=== PATIENT | female | born 1960 | race Caucasian/White ===

== ENCOUNTER 2020-08-22 15:12 | Inpatient (IN) | payer OTHER ==
[2020-08-22 16:41] LABS: Arterial Blood Carboxyhemoglob 10.8 % (0-1.5); Blood Gas Oxyhemoglobin 84.3 % (94-97); Blood O2 Saturation 95.8 % (92-98.5)
[2020-08-22] MEDS ORDERED: LEVALBUTEROL 1.25 MG/3 ML NEB ONE (17:14)
[2020-08-22] MEDS ORDERED: predniSONE 20 MG TAB ONE (17:14)
[2020-08-22 17:29] LABS: Absolute Lymphocytes (CBC) 0.4 K/uL (0.7-4.9); Basophils % 0.2 % (0-1.3); Hematocrit 41.1 % (36.0-45.0); Lymphocytes % 4.1 % (15.3-44.8); MPV 7.1 fL (7.6-11.3); RBC Red Blood Cell Count 4.24 M/uL (3.86-4.86)
[2020-08-22 17:30] LABS: Protime INR 1.28
[2020-08-22 17:55] LABS: ALT/SGPT 10 U/L (12-78); AST/SGOT 15 U/L (15-37); Alkaline Phosphatase 98 U/L (45-117); BUN Blood Urea Nitrogen 13 mg/dL (7-18); Bicarbonate 37 mmol/L (21-32); Bilirubin Direct 0.3 mg/dL (0-0.2); Bilirubin Total 0.6 mg/dL (0.2-1.0); Glucose Level 88 mg/dL (74-106); Magnesium 2.1 mg/dL (1.8-2.4); NT PRO-BNP 12116 pg/mL (<125); Potassium 3.9 mmol/L (3.5-5.1); Protein, Total 7.4 g/dL (6.4-8.2); Sodium Level 134 mmol/L (136-145)
[2020-08-22 18:01] LABS: Troponin (Emerg Dept Use Only) 0.73 ng/mL (0.0-0.045)
--- NOTE | 2020-08-22 18:16 | ER ---
Nurse's Notes [facility] Name: García Alegria Age: 60 yrs Sex: Female : 1960 Arrival Date: 08/22/2020 Time: 15:17 Bed 18 Private MD: Diagnosis: COPD, CHF, Pneumonia, Hypoxia (< 80% on concentratror at home) Presentation: 08/22 15:37 Chief complaint: Patient states: Trouble breathing, low O2 sat. 73% at home. No fever, ll1 + AVALOS. Coronavirus screen: Client denies travel out of the [place] in the last 14 days. At this time, the client does not indicate any symptoms associated with coronavirus-19. Ebola Screen: Patient denies travel to an Ebola-affected area in the 21 days before illness onset. Initial Sepsis Screen: Does the patient meet any 2 criteria? HR > 90 bpm. Onset of symptoms was August 19, 2020. 15:37 Method Of Arrival: Ambulatory ll1 15:37 Acuity: KATYA 2 ll1 17:23 Initial Sepsis Screen: Does the patient have a suspected source of infection? No. ph Patient's initial sepsis screen is negative. Risk Assessment: Do you want to hurt yourself or someone else? Patient reports no desire to harm self or others. Historical: - Allergies: 15:39 No Known Allergies; ll1 - PMHx: 15:39 Immune Suppression; Tachypnea; Rheumatoid Arthritis; pericarditis; dyspnea; Depression; ll1 Asthma; Tachycardia; - PSHx: 15:39 Pericardial Window; ll1 - Immunization history:: Flu vaccine is up to date. - Social history:: Smoking status: Patient reports the use of cigarette tobacco products, smokes one pack cigarettes per day. Screenin:22 Abuse screen: Denies threats or abuse. Denies injuries from another. Nutritional ph screening: No deficits noted. Tuberculosis screening: No symptoms or risk factors identified. Fall Risk None identified. Assessment: 17:20 General: Appears in no apparent distress. comfortable, well groomed, Behavior is calm, ph cooperative, appropriate for age, Denies fever, feeling ill. Pain: Denies pain. Neuro: Level of Consciousness is awake, alert, obeys commands, Oriented to person, place, time, situation. Cardiovascular: Reports fatigue, shortness of breath, Denies chest pain, Capillary refill < 3 seconds in bilateral fingers Patient's skin is warm and dry. Cardiovascular: Edema is 2+ to left midcalf, left ankle, left foot, right midcalf, right ankle and right foot. Respiratory: Reports shortness of breath at rest Airway is patent Respiratory effort is even, unlabored, Respiratory pattern is regular, symmetrical. GI: No signs and/or symptoms were reported involving the gastrointestinal system. Derm: Skin is intact, is healthy with good turgor, Skin is pink, warm \T\ dry. Musculoskeletal: Circulation, motion, and sensation intact. Range of motion: intact in all extremities. 18:15 Reassessment: Patient appears in no apparent distress at this time. Patient and/or ph family updated on plan of care and expected duration. Pain level reassessed. Patient is alert, oriented x 3, equal unlabored respirations, skin warm/dry/pink. 18:18 Reassessment: Dr Bucio at bedside to speak w/ pt about being admitted. ph 18:50 Reassessment: Patient appears in no apparent distress at this time. Patient and/or ph family updated on plan of care and expected duration. Pain level reassessed. Patient is alert, oriented x 3, equal unlabored respirations, skin warm/dry/pink. Pt denies pain, nausea, or SOB at this time Patient denies pain at this time. 19:15 Reassessment: Patient appears in no apparent distress at this time. Patient and/or jb4 family updated on plan of care and expected duration. Pain level reassessed. Patient is alert, oriented x 3, equal unlabored respirations, skin warm/dry/pink. 20:30 Reassessment: Patient appears in no apparent distress at this time. Patient and/or jb4 family updated on plan of care and expected duration. Pain level reassessed. Patient is alert, oriented x 3, equal unlabored respirations, skin warm/dry/pink. 21:30 Reassessment: Patient appears in no apparent distress at this time. Patient and/or jb4 family updated on plan of care and expected duration. Pain level reassessed. Patient is alert, oriented x 3, equal unlabored respirations, skin warm/dry/pink. Vital Signs: 15:37 BP 125 / 83; Pulse 116; Resp 20; Temp 99.3; Pulse Ox 81% on R/A; Weight 83.01 kg; ll1 Height 5 ft. 4 in. (162.56 cm); Pain 8/10; 17:23 BP 132 / 78; Pulse 101; Resp 20; Pulse Ox 100% on Nebulizer Mask; ph 18:15 BP 138 / 66; Pulse 118; Resp 20; Pulse Ox 89% on 2 lpm NC; ph 18:57 BP 138 / 66; Pulse 108; Resp 22; Pulse Ox 95% on 4 lpm NC; Pain 0/10; ph 20:00 BP 128 / 86; Pulse 93; Resp 16; Pulse Ox 100% on 4 lpm NC; jb4 21:30 BP 120 / 67; Pulse 88; Resp 16; Temp 97.4; Pulse Ox 97% on 4 lpm NC; jb4 15:37 Body Mass Index 31.41 (83.01 kg, 162.56 cm) ll1 18:15 pt states that this is her normal Spo2 on home oxygen at 2L NC ph ED Course: 15:17 Patient arrived in ED. mr 15:35 Zeke Bucio MD is Attending Physician. kdr 15:38 Triage completed. ll1 15:39 Arm band placed on Patient placed in an exam room, on a stretcher. ll1 15:45 Ruba Jara, DENICE is Primary Nurse. ph 16:39 XRAY Chest (1 view) In Process Unspecified. EDMS 17:15 Initial lab(s) drawn, by me, sent to lab. Inserted saline lock: 22 gauge in left ph forearm, using aseptic technique. Blood collected. 17:22 Patient has correct armband on for positive identification. Placed in gown. Bed in low ph position. Call light in reach. Side rails up X 1. Pulse ox on. NIBP on. Door closed. Noise minimized. 18:14 Dino Rizvi MD is Hospitalizing Provider. kdr 18:19 No provider procedures requiring assistance completed. Patient admitted, IV remains in ph place. 18:21 EKG done, by ED staff, reviewed by Zeke Bucio MD. jp3 18:22 telemetry monitor on. jp3 18:22 Warm blanket given. Pillow given. Verbal reassurance given. jp3 Administered Medications: 17:17 Drug: predniSONE 60 mg Route: PO; ph 19:26 Follow up: Response: No adverse reaction ph 17:17 Drug: Xopenex (3) 1.25 mg Route: Inhalation; ph 19:26 Follow up: Response: No adverse reaction ph 18:00 Drug: Heparin (IA Drip) 12 units/kg/hr - (HEParin 29335 units, D5W 500 ml) ph {Co-Signature: iw (Shawna Casillas RN).} Route: IV; Rate: calculated rate; Site: left forearm; 19:27 Follow up: Response: No adverse reaction; IV Status: Infusion continued upon admission ph 18:40 Drug: Aspirin Chewable Tablet 324 mg Route: PO; ph 19:26 Follow up: Response: No adverse reaction ph 18:40 Drug: Rocephin - (cefTRIAXone) 1 grams Route: IVPB; Infused Over: 30 mins; Site: left ph forearm; 19:27 Follow up: Response: No adverse reaction; IV Status: Completed infusion ph 18:47 Drug: Heparin (IA-Bolus with thrombolytic) - HEParin 60 units/kg {Co-Signature: iw ph (Shawna Casillas RN).} Route: IVP; Site: left forearm; 19:27 Follow up: Response: No adverse reaction ph Outcome: 18:15 Decision to Hospitalize by Provider. kdr 21:30 Admitted to ICU accompanied by nurse, via wheelchair. jb4 21:30 Condition: stable 21:30 Discharge instructions given to patient, family, Instructed on the need for admit, Demonstrated understanding of instructions. 21:46 Patient left the ED. ar5 Signatures: Dispatcher [employer] EDMS Zeke Bucio MD MD [facility] Ursula Epps mr Ruba Jara RN RN Raji Arenas RN RN jb4 Braulio Mckenzie Autumn ar5 Moisés Mckinney RN RN ll1 Shawna Casillas RN iw
--- NOTE | 2020-08-22 18:16 | EDPHYS ---
Physician Documentation [facility] Name: García Alegria Age: 60 yrs Sex: Female : 1960 Arrival Date: 08/22/2020 Time: 15:17 Bed 18 Private MD: ED Physician Zeke Bucio HPI: 08/22 19:26 This 60 yrs old Female presents to ER via Ambulatory with complaints of Low kdr O2. 19:26 The patient has been feeling SOB with low oxygen for about a week but worse in the last kdr few days. She has home oxygen but does not think it is working. She is also experiencing worsening bilateral ankle swelling. Onset: The symptoms/episode began/occurred gradually, 1 week(s) ago. Severity of symptoms: At their worst the symptoms were moderate in the emergency department the symptoms are unchanged. The patient has experienced similar episodes in the past, multiple times. The patient has not recently seen a physician. Historical: - Allergies: 15:39 No Known Allergies; ll1 - PMHx: 15:39 Immune Suppression; Tachypnea; Rheumatoid Arthritis; pericarditis; dyspnea; Depression; ll1 Asthma; Tachycardia; - PSHx: 15:39 Pericardial Window; ll1 - Immunization history:: Flu vaccine is up to date. - Social history:: Smoking status: Patient reports the use of cigarette tobacco products, smokes one pack cigarettes per day. ROS: 19:26 Constitutional: Negative for fever, chills, and weight loss, Eyes: Negative for injury, kdr pain, redness, and discharge, ENT: Negative for injury, pain, and discharge, Neck: Negative for injury, pain, and swelling, Cardiovascular: Negative for chest pain, palpitations, and edema, Abdomen/GI: Negative for abdominal pain, nausea, vomiting, diarrhea, and constipation, Back: Negative for injury and pain, : Negative for injury, bleeding, discharge, and swelling, Skin: Negative for injury, rash, and discoloration, Neuro: Negative for weakness, numbness, tingling, and seizure activity - she does c/o frontal sinus AVALOS Psych: Negative for depression, anxiety, suicide ideation, homicidal ideation, and hallucinations, Allergy/Immunology: Negative for hives, rash, and allergies, Endocrine: Negative for neck swelling, polydipsia, polyuria, polyphagia, and marked weight changes, Hematologic/Lymphatic: Negative for swollen nodes, abnormal bleeding, and unusual bruising. 19:26 Respiratory: Positive for dyspnea on exertion, shortness of breath, Negative for cough. Exam: 19:26 Constitutional: This is a well developed, well nourished patient who is awake, alert, kdr and in no acute distress. Head/Face: Normocephalic, atraumatic. Eyes: Pupils equal round and reactive to light, extra-ocular motions intact. Lids and lashes normal. Conjunctiva and sclera are non-icteric and not injected. Cornea within normal limits. Periorbital areas with no swelling, redness, or edema. Neck: Trachea midline, no thyromegaly or masses palpated, and no cervical lymphadenopathy. Supple, full range of motion without nuchal rigidity, or vertebral point tenderness. No Meningismus. Chest/axilla: Normal chest wall appearance and motion. Nontender with no deformity. No lesions are appreciated. Cardiovascular: Regular rate and rhythm with a normal S1 and S2. No gallops, murmurs, or rubs. Normal PMI, no JVD. No pulse deficits. Abdomen/GI: Soft, non-tender, with normal bowel sounds. No distension or tympany. No guarding or rebound. No evidence of tenderness throughout. Back: No spinal tenderness. No costovertebral tenderness. Full range of motion. Skin: Warm, dry with normal turgor. Normal color with no rashes, no lesions, and no evidence of cellulitis. Neuro: Awake and alert, GCS 15, oriented to person, place, time, and situation. Cranial nerves II-XII grossly intact. Motor strength 5/5 in all extremities. Sensory grossly intact. Cerebellar exam normal. Normal gait. Psych: Awake, alert, with orientation to person, place and time. Behavior, mood, and affect are within normal limits. 19:26 Respiratory: the patient does not display signs of respiratory distress, Respirations: normal, Breath sounds: rales, that are mild, are scattered, Respiratory rate: 22 19:26 Musculoskeletal/extremity: Extremities: grossly normal except: noted in the right leg and left leg: erythema, swelling, tenderness, 2+ pitting edema to both lower extremities, Circulation is intact in all extremities. Sensation intact. 08/23 10:24 ECG was reviewed by the Attending Physician. kdr Vital Signs: 08/22 15:37 BP 125 / 83; Pulse 116; Resp 20; Temp 99.3; Pulse Ox 81% on R/A; Weight 83.01 kg; ll1 Height 5 ft. 4 in. (162.56 cm); Pain 8/10; 17:23 BP 132 / 78; Pulse 101; Resp 20; Pulse Ox 100% on Nebulizer Mask; ph 18:15 BP 138 / 66; Pulse 118; Resp 20; Pulse Ox 89% on 2 lpm NC; ph 18:57 BP 138 / 66; Pulse 108; Resp 22; Pulse Ox 95% on 4 lpm NC; Pain 0/10; ph 20:00 BP 128 / 86; Pulse 93; Resp 16; Pulse Ox 100% on 4 lpm NC; jb4 21:30 BP 120 / 67; Pulse 88; Resp 16; Temp 97.4; Pulse Ox 97% on 4 lpm NC; jb4 15:37 Body Mass Index 31.41 (83.01 kg, 162.56 cm) ll1 18:15 pt states that this is her normal Spo2 on home oxygen at 2L NC ph MDM: 18:15 Patient medically screened. kdr 19:26 Data reviewed: vital signs, nurses notes, lab test result(s), radiologic studies. kdr Counseling: I had a detailed discussion with the patient and/or guardian regarding: the historical points, exam findings, and any diagnostic results supporting the discharge/admit diagnosis, lab results, radiology results, the need for further work-up and treatment in the hospital. Physician consultation: Zak Smith MD and will see patient in inpatient room, Ok - to keep patient here - will take to [facility] tomorrow after echo. tomorrow. 08/22 16:12 Order name: Basic Metabolic Panel; Complete Time: 18:06 kdr 08/22 16:12 Order name: CBC with Diff; Complete Time: 18:06 kdr 08/22 16:12 Order name: LFT's; Complete Time: 18:06 kdr 08/22 16:12 Order name: Magnesium; Complete Time: 18:06 kdr 08/22 16:12 Order name: NT PRO-BNP; Complete Time: 18:06 kdr 08/22 16:12 Order name: PT-INR; Complete Time: 18:06 kdr 08/22 16:12 Order name: Troponin (emerg Dept Use Only); Complete Time: 18:06 kdr 08/22 16:12 Order name: XRAY Chest (1 view) kdr 08/22 16:12 Order name: ABG; Complete Time: 17:34 kdr 08/22 18:31 Order name: Ptt, Activated; Complete Time: 19:20 ss 08/22 18:54 Order name: SARS-COV-2 RT PCR EDMS 08/22 16:12 Order name: EKG; Complete Time: 16:12 kdr 08/22 16:12 Order name: Cardiac monitoring; Complete Time: 16:32 kdr 08/22 16:12 Order name: EKG - Nurse/Tech; Complete Time: 18:26 kdr 08/22 16:12 Order name: IV Saline Lock; Complete Time: 17:17 kdr 08/22 16:12 Order name: Labs collected and sent; Complete Time: 17:17 kdr 08/22 16:12 Order name: O2 Per Protocol; Complete Time: 17:18 kdr 08/22 16:12 Order name: O2 Sat Monitoring; Complete Time: 17:18 kdr EC/02 10:24 Rate is 121 beats/min. Rhythm is regular, Sinus Rhythm with No ectopy, Right bundle kdr branch block. Left axis deviation noted. MS interval is normal at [address] Segment is elevated in leads V4, V5, V6, no recipricol changeas in I \T\ L. Administered Medications: 08/22 17:17 Drug: predniSONE 60 mg Route: PO; ph 19:26 Follow up: Response: No adverse reaction ph 17:17 Drug: Xopenex (3) 1.25 mg Route: Inhalation; ph 19:26 Follow up: Response: No adverse reaction ph 18:00 Drug: Heparin (PR Drip) 12 units/kg/hr - (HEParin 66805 units, D5W 500 ml) ph {Co-Signature: iw (Shawna Casillas RN).} Route: IV; Rate: calculated rate; Site: left forearm; 19:27 Follow up: Response: No adverse reaction; IV Status: Infusion continued upon admission ph 18:40 Drug: Aspirin Chewable Tablet 324 mg Route: PO; ph 19:26 Follow up: Response: No adverse reaction ph 18:40 Drug: Rocephin - (cefTRIAXone) 1 grams Route: IVPB; Infused Over: 30 mins; Site: left ph forearm; 19:27 Follow up: Response: No adverse reaction; IV Status: Completed infusion ph 18:47 Drug: Heparin (PR-Bolus with thrombolytic) - HEParin 60 units/kg {Co-Signature: ph (Shawna Casillas RN).} Route: IVP; Site: left forearm; 19:27 Follow up: Response: No adverse reaction ph Disposition: 08/22/20 18:15 Hospitalization ordered by Dino Rizvi for Inpatient Admission. Preliminary diagnosis is COPD, CHF, Pneumonia, Hypoxia (< 80% on concentratror at home). - Bed requested for Intensive Care Unit. - Status is Inpatient Admission. ar5 - Condition is Fair. - Problem is an acute exacerbation. - Symptoms have improved. Signatures: Dispatcher [employer] EDKY Zeke Bucio MD MD [facility] Shawna Casillas RN RN Royer Bocanegra PA PA [id number] García Eli, [employer] Ruba Jara RN RN Israel Stock RN RN ja1 Uzma Pascual ar5 Moisés Mckinney RN RN [facility] Shawna Casillas RN Corrections: (The following items were deleted from the chart) 18:19 18:15 Hospitalization Ordered by Dino Rizvi MD for Inpatient Admission. Preliminary ja1 diagnosis is COPD, CHF, Pneumonia, Hypoxia (< 80% on concentratror at home). Bed requested for Telemetry/MedSurg (Inpatient). Status is Inpatient Admission. Condition is Fair. Problem is an acute exacerbation. Symptoms have improved. kdr 18:54 16:12 CORONAVIRUS+MR.LAB.BRZ ordered. [facility] EDKY 18:56 18:19 08/22/2020 18:15 Hospitalization Ordered by Dino Rizvi MD for Inpatient iw Admission. Preliminary diagnosis is COPD, CHF, Pneumonia, Hypoxia (< 80% on concentratror at home). Bed requested for Telemetry/MedSurg (Inpatient). Status is Inpatient Admission. Condition is Fair. Problem is an acute exacerbation. Symptoms have improved. ja1 21:46 18:56 08/22/2020 18:15 Hospitalization Ordered by Dino Rizvi MD for Inpatient ar5 Admission. Preliminary diagnosis is COPD, CHF, Pneumonia, Hypoxia (< 80% on concentratror at home). Bed requested for Intensive Care Unit. Status is Inpatient Admission. Condition is Fair. Problem is an acute exacerbation. Symptoms have improved. iw
[2020-08-22] MEDS ORDERED: ASPIRIN 81 MG CHEWABLE TABLET ONE (18:46)
[2020-08-22] MEDS ORDERED: CEFTRIAXONE/SWI 1gm 1 GM/10 ML SYR ONE (18:47)
[2020-08-22] MEDS ORDERED: HEPARIN 5000 UNIT/ML 1 ML VIAL ONE (18:47)
[2020-08-22] MEDS ORDERED: HEPARIN/D5W 25,000 UNIT/500 ML BAG IV ONE (18:47)
--- NOTE | 2020-08-22 21:43 | P.HP ---
Certification for Inpatient Patient admitted to: Inpatient With expected LOS: >2 Midnights Patient will require the following post-hospital care: None Practitioner: I am a practitioner with admitting privileges, knowledge of patient current condition, hospital course, and medical plan of care. Services: Services provided to patient in accordance with Admission requirements found in Title 42 Section 412.3 of the Code of Federal Regulations <García Eli - Last Filed: 08/22/20 21:38> Patient History Date of Service: 08/22/20 Primary Care Provider: Dr. Ventura Reason for admission: STEMI History of Present Illness: 60-year-old female with history of rheumatoid arthritis and COPD presents emergency department for shortness of breath and lower extremity edema. Patient reports that over the course of the last week she has noticed increasing shortness of breath and swelling to lower extremities. Patient reports that in the past she has had intermittent swelling of the lower extremities related to her rheumatoid arthritis and she has never been diagnosed with CHF. Patient reports that she intermittently takes prednisone 5 mg only p.r.n. patient denies any chest pain or associated symptoms. Patient was evaluated in the emergency department and found to have elevated troponin at 0.7 3, other labs are unremarkable at this time. EKG was significant for suggestion of acute myocardial infarction in the anterior lateral leads. Cardiology was called who recommend patient placed on a heparin drip and admitted to the intensive care unit, plan for heart catheterization in the morning. On auscultation patient is still with moderate expiratory wheezing, will continue to treat for COPD exacerbation as well as acute myocardial infarction. When I saw the patient in the emergency department she was awake, alert, oriented x3. Patient denies any chest pain only reports shortness of breath and wheezing. Patient admitted to intensive care for further evaluation and management. - Past Medical/Surgical History Diabetic: No -: COPD -: Rheumatoid Arthritis -: Depression -: Allergies -: Pericarditis -: Gallbladder -: Pericardial window Psychosocial/ Personal History: Patient currently lives at home with her family and is retired. - Family History Father -: Cancer, Other (see notes) Notes: Blood clot, Mother -: Other (see notes) Notes: Cataracts - Social History Smoking Status: Current every day smoker Alcohol use: No CD- Drugs: No Caffeine use: Yes Place of Residence: Home <García Eli - Last Filed: 08/22/20 21:38> Date of Service: 08/24/20 <Dino Rizvi - Last Filed: 08/24/20 17:46> Allergies No Known Allergies Allergy (Verified 11/11/17 22:26) Home Medications: Albuterol Sulfate [Proair Hfa] 8.5 gm IH Q4H PRN 11/11/17 Citalopram [Celexa*] 10 mg PO DAILY 11/11/17 Eszopiclone [Lunesta*] 3 mg PO BEDTIME 11/11/17 Fluticasone [Flonase 50MCG Nasal [place]*] 2 sprays NS DAILY 11/11/17 Leflunomide 20 mg PO DAILY 11/11/17 Levocetirizine Dihydrochloride [Xyzal] 5 mg PO DAILY 11/11/17 Tofacitinib Citrate [Xeljanz Xr] 1 tab PO DAILY 11/11/17 predniSONE [Prednisone*] 5 mg PO DAILY PRN 11/11/17 Acetaminophen [Tylenol] 325 mg PO DAILY PRN 08/23/20 Ergocalciferol (Vitamin D2) [Vitamin D 50,000 Unit Cap] 1 cap PO SEECOM 08/23/20 Glycopyrrolate/Formoterol Fum [Bevespi Aerosphere Inhaler] 2 puff IH BID 08/23/20 Magnesium Oxide [Magnesium] 1 tab PO DAILY 08/23/20 Atorvastatin Calcium [Lipitor] 80 mg PO BEDTIME #30 tab 08/24/20 Clopidogrel Bisulfate [Plavix] 75 mg PO DAILY #30 tablet 08/24/20 Furosemide [Lasix] 20 mg PO DAILY 30 Days #30 tablet 08/24/20 Metoprolol Succinate [Toprol Xl] 50 mg PO DAILY #30 tab 08/24/20 Review of Systems Respiratory: Cough, Shortness of Breath, SOB with Excertion, Wheezing Cardiovascular: Edema (Bilateral lower extremities) <García Eli - Last Filed: 08/22/20 21:38> Physical Examination - Physical Exam General: Alert, In no apparent distress, Oriented x3 HEENT: Atraumatic, Normocephalic, Mucous membr. moist/pink Neck: Supple Respiratory: Crackles/rales, Expiratory wheezes Cardiovascular: Regular rate/rhythm, Edema (Bilateral lower extremities, 2+ pitting to the level of the mcpherson) Capillary refill: <2 Seconds Gastrointestinal: Normal bowel sounds, Soft and benign Musculoskeletal: No swelling, No contractures, No erythema Integumentary: No significant lesion, No tenderness/swelling, No erythema Neurological: Normal speech, Normal tone, Sensation intact, Normal affect - Studies Laboratory Data (last 24 hrs) 08/22/20 17:15: APTT 29.5 08/22/20 17:15: PT 15.0 H, INR 1.28 08/22/20 17:15: WBC 9.2, Hgb 13.2, Hct 41.1, Plt Count 315 08/22/20 17:15: Sodium 134 L, Potassium 3.9, BUN 13, Creatinine 0.51 L, Glucose 88, Magnesium 2.1, Total Bilirubin 0.6, AST 15, ALT 10 L, Alkaline Phosphatase 98 <García Eli - Last Filed: 08/22/20 21:38> Assessment and Plan - Plan Assessment ST-elevation myocardial infarction-anteriolateral COPD exacerbation Lower extremity edema-suspect acute CHF Rheumatoid arthritis Plan ST-elevation myocardial infarction-anteriolateral: Cardiology was contacted while patient was in the emergency department, patient is on heparin drip and with daily aspirin. NPO after midnight in preparation for heart catheterization in the morning. Patient to remain on telemetry throughout this hospitalization, admitted to the ICU. Appreciate further input from cardiology. Patient has had pericardial effusion in the past with pericardial window approximately 5 years ago. Echocardiogram ordered. Cardiology aware. COPD exacerbation: Patient with moderate COPD exacerbation still with expiratory wheezing after steroids and breathing treatments in the emergency department, continue with prednisone, antibiotics. Lower extremity edema-suspect acute CHF: Continue with IV Lasix at this time. Will obtain echocardiogram. Appreciate further input from cardiology. Rheumatoid arthritis: Obtain and continue patient's home medications. Plan to discharge in: Greater than 2 days - Advance Directives Does patient have a Living Will: No Does patient have a Durable POA for Healthcare: No - Code Status/Comfort Care Code Status Assessed: Yes (Patient is full code) Critical Care: No Time Spent Managing Pts Care (In Minutes): 55 <García Eli - Last Filed: 08/22/20 21:38> Physician Review Additional Text: Plan of care discussed with García Eli, and I agree with the management plan as noted above. <Dino Rizvi - Last Filed: 08/24/20 17:46>
[2020-08-22] MEDS ORDERED: HEPARIN 5000 UNIT/ML 1 ML VIAL IV ONE (21:46)
[2020-08-22] MEDS: predniSONE 20 MG TAB PO SCH (21:46)
[2020-08-22] MEDS ORDERED: MORPHINE 2 MG/ML SYR IV PRN (21:46)
[2020-08-22] MEDS ORDERED: NITROGLYCERIN 0.4 MG/TAB SL PRN (21:46)
[2020-08-22] MEDS ORDERED: ONDANSETRON 4 MG/2 ML VIAL IV PRN (21:46)
[2020-08-22] MEDS ORDERED: ATORVASTATIN 40 MG TAB PO SCH (21:46)
[2020-08-22] MEDS ORDERED: ACETAMINOPHEN 500 MG TAB PO PRN (21:46)
[2020-08-22] MEDS ORDERED: HEPARIN/D5W 25,000 UNIT/500 ML BAG IV SCH (21:46)
[2020-08-22] MEDS: IPRATROPIUM BROM 0.5MG/2.5ML NEB SCH (22:30)
[2020-08-22] MEDS: ALBUTEROL 2.5 MG/3 ML NEB SOL NEB SCH (22:30)
[2020-08-22] MEDS ORDERED: IPRATROPIUM BROM 0.5MG/2.5ML ONE (22:43)
[2020-08-22] MEDS ORDERED: ALBUTEROL 2.5 MG/3 ML NEB SOL ONE (22:44)
[2020-08-22 23:30] VITALS: BMI 31.4
[2020-08-22 23:36] LABS: CKMB Creatine Kinase MB 2.7 ng/mL (0.3-3.6); Troponin I 0.48 ng/mL (0.0-0.045)
[2020-08-22] MEDS: FUROSEMIDE 40 MG/4 ML VIAL IV SCH (23:57)
[2020-08-23] MEDS ORDERED: FUROSEMIDE 40 MG/4 ML VIAL ONE (00:09)
[2020-08-23] MEDS ORDERED: ATORVASTATIN 20 MG TAB ONE (00:10)
--- NOTE | 2020-08-23 00:25 | RAD REPORT ---
EXAM DESCRIPTION: RAD - Chest Single View - 08/22/2020 10:53 pm CLINICAL HISTORY: Congestion;COPD Chest pain. COMPARISON: Chest Pa And Lat (2 Views) dated 07/23/2020; Chest Pa And Lat (2 Views) dated 08/21/2019; C hest Pa And Lat (2 Views) dated 11/12/2017; Chest Single View dated 11/11/2017 FINDINGS: Portable technique limits examination quality. Mild bilateral interstitial lung opacities are seen suspicious for mild pulmonary edema. The heart is quite prominent in size. No displaced fractures. IMPRESSION: Mild to moderate CHF suspected.
[2020-08-23] MEDS: FUROSEMIDE 40 MG/4 ML VIAL IV SCH ×3 (01:00→20:47)
[2020-08-23] MEDS: AZITHROMYCIN IV 500 MG in NA CHLORIDE 0.9% 250 ML IVPB SCH ×2 (01:26→21:13)
[2020-08-23] MEDS ORDERED: AZITHROMYCIN 500 MG INJ IVPB ONE ×2 (01:29→20:58)
[2020-08-23] MEDS ORDERED: NA CHLORIDE 0.9% 250 ML ONE ×2 (01:30→21:14)
[2020-08-23] MEDS: IPRATROPIUM BROM 0.5MG/2.5ML NEB SCH ×4 (02:00→19:50)
[2020-08-23] MEDS: ALBUTEROL 2.5 MG/3 ML NEB SOL NEB SCH ×4 (02:00→19:50)
[2020-08-23 02:32] LABS: Absolute Lymphocytes (CBC) 0.2 K/uL (0.7-4.9); Basophils % 0.1 % (0-1.3); Hematocrit 38.4 % (36.0-45.0); Lymphocytes % 1.8 % (15.3-44.8); MPV 7.5 fL (7.6-11.3); RBC Red Blood Cell Count 3.99 M/uL (3.86-4.86)
[2020-08-23 02:49] LABS: CKMB Creatine Kinase MB 2.9 ng/mL (0.3-3.6); Troponin I 0.45 ng/mL (0.0-0.045)
[2020-08-23 02:56] LABS: Blood Morphology Comment NOT SEEN (NOT SEEN); Platelet Estimate ADEQ
[2020-08-23 02:57] LABS: BUN Blood Urea Nitrogen 11 mg/dL (7-18); Bicarbonate 35 mmol/L (21-32); Glucose Level 131 mg/dL (74-106); HDL Cholesterol 41 mg/dL (40-60); LDL Cholesterol, Calculated 42 (<130); Potassium 4.3 mmol/L (3.5-5.1); Sodium Level 136 mmol/L (136-145); Thyroid Stimulating Hormone 0.357 uIU/mL (0.360-3.740)
[2020-08-23] MEDS: METOPROLOL TAR 25 MG TAB PO SCH ×2 (06:00→17:53)
[2020-08-23] MEDS: ASPIRIN 81 MG CHEWABLE TABLET PO SCH (07:14)
[2020-08-23] MEDS: CLOPIDOGREL 75 MG TABLET PO SCH (07:14)
[2020-08-23] MEDS ORDERED: LIDOCAINE 1% 20 ML MDV ONE (07:15)
[2020-08-23] MEDS ORDERED: HEPA 1000U/500MLS 1,000 UNIT/500 ML BAG IV ONE (07:15)
[2020-08-23] MEDS ORDERED: MIDAZOLAM HCL 2 MG/2 ML INJ ONE ×2 (07:16→08:15)
[2020-08-23] MEDS ORDERED: FENTANYL CITR 100 MCG/2 ML ONE (07:17)
[2020-08-23] MEDS ORDERED: NITROGLYCERIN 100 MCG/ML SYR (for cath lab use only) IV ONE (07:18)
[2020-08-23] MEDS ORDERED: NA CHLORIDE 0.9% 50 ML ONE (07:18)
[2020-08-23] MEDS ORDERED: CLOPIDOGREL 75 MG TABLET ONE (07:26)
[2020-08-23] MEDS ORDERED: ASPIRIN 81 MG CHEWABLE TABLET ONE (07:26)
[2020-08-23] MEDS ORDERED: NA CHLORIDE 0.9% 1,000 ML ONE (07:35)
[2020-08-23] MEDS ORDERED: INFLUENZA VACCINE (for 3y+) 0.5 ML DOSE IMVAC ONE (08:00)
[2020-08-23] MEDS ORDERED: PNEUMOCOCCAL VACCINE 0.5 ML IMVAC ONE (08:00)
[2020-08-23] MEDS ORDERED: IPRATROPIUM BROM 0.5MG/2.5ML ONE (08:47)
[2020-08-23] MEDS ORDERED: ALBUTEROL 2.5 MG/3 ML NEB SOL ONE (08:47)
[2020-08-23] MEDS ORDERED: PRASUGREL (EFFIENT) 10 MG TAB ONE (08:52)
--- NOTE | 2020-08-23 08:55 | P.PN ---
Subjective Date of Service: 08/23/20 Primary Care Provider: Dr. Ventura Chief Complaint: STEMI Subjective: Improving (feels as though she is breathing clearer, but still with SOB leg swelling improved. anxious for catheterization today) Review of Systems 10-point ROS is otherwise unremarkable Physical Examination - Vital Signs Temperature: 98 F Blood Pressure: 90/52 Pulse: 60 Respirations: 20 Pulse Ox (%): 96 - Physical Exam General: Alert, In no apparent distress Neck: Supple Respiratory: Expiratory wheezes (bilateral, diffuse) Cardiovascular: Regular rate/rhythm, Edema (1-2+ above b/l ankles) Gastrointestinal: Soft and benign, Non-distended, No tenderness Integumentary: No rashes Neurological: Normal speech, Normal affect - Studies Laboratory Data (last 24 hrs) 08/22/20 17:15: APTT 29.5 08/22/20 17:15: PT 15.0 H, INR 1.28 08/22/20 17:15: WBC 9.2, Hgb 13.2, Hct 41.1, Plt Count 315 08/22/20 17:15: Sodium 134 L, Potassium 3.9, BUN 13, Creatinine 0.51 L, Glucose 88, Magnesium 2.1, Total Bilirubin 0.6, AST 15, ALT 10 L, Alkaline Phosphatase 98 Assessment & Plan Physician Review Additional Text: ST-elevation myocardial infarction-anteriolateral Acute COPD exacerbation Lower extremity edema-suspect acute CHF Rheumatoid arthritis Plan ST-elevation myocardial infarction-anteriolateral: -Case discussed with Cardiology in ED, started on heparin drip and aspirin -for cardiac cath this morning, NPO this morning -dispo pending cath results -h/o pericardial effusion in the past with pericardial window approximately 5 years ago. Echocardiogram ordered. Cardiology aware COPD exacerbation: -Patient with moderate COPD exacerbation still with expiratory wheezing after steroids and breathing treatments in the emergency department -some slight improvement per patient this morning -continue with prednisone, antibiotics. Lower extremity edema-suspect acute CHF: -BNP over 12,000 on admission, chest x-ray consistent with mild pulmonary edema -Last echocardiogram (11/12/2017): Normal LV EF (69%), mild tricuspid regurgitation. No wall motion abnormalities -pt with some hypotension, will decrease frequency of IV Lasix (started on 40mg IV q8hr) -echocardiogram ordered. Appreciate further input from cardiology. Rheumatoid arthritis: -Obtain and continue patient's home medications. Dispo: pending cardiac cath, but with possible CHF Exacerbation and COPD exacerbation will likely need another 24-48hrs prior to discharge Time Spent Managing Pts Care (In Minutes): 35
[2020-08-23] MEDS ORDERED: CEFTRIAXONE 1 GM/NS 50 ML 1 GM/50 ML BAG IV SCH (09:00)
[2020-08-23] MEDS ORDERED: NA CHLORIDE 0.9% 1,000 ML IV SCH (09:30)
[2020-08-23] MEDS ORDERED: MORPHINE 4 MG/ML SYR IV PRN (09:45)
[2020-08-23] MEDS ORDERED: HYDROCODONE/APAP 5/325 MG TAB PO PRN ×2 (09:45→10:45)
[2020-08-23] MEDS ORDERED: ACETAMINOPHEN 325 MG TABLET PO PRN (10:52)
--- NOTE | 2020-08-23 11:40 | EKG ---
Test Date: 2020-08-22 Test Time: 18:20:34 Mental Health Technician: MAJOR MEASUREMENT RESULTS: Intervals: Rate: 121 OR: 138 QRSD: 108 QT: 332 QTc: 471 [place]: P: 83 OR: 138 QRS: -73 T: 79 INTERPRETIVE STATEMENTS: Sinus tachycardia Left axis deviation RSR' or QR pattern in V1 suggests right ventricular conduction delay Inferior infarct, possibly acute Anterolateral infarct, possibly acute ACUTE PA Abnormal ECG Compared to ECG 11/11/2017 15:26:53 Left-axis deviation now present RSR' in V1 or V2 now present Incomplete right bundle-branch block no longer present Left anterior fascicular block no longer present Myocardial infarct finding still present Electronically Signed On 08-23-20 11:37:30 CDT by Zak Smith
--- NOTE | 2020-08-23 11:49 | ECHO ---
HEIGHT: 5 ft 4 in WEIGHT: 183 lb 0 oz DATE OF STUDY: 08/23/[address]: García Eli NP 2-DIMENSIONAL: YES M.MODE: YES DOPPLER: YES COLOR FLOW: YES TDS: NO PORTABLE: NO DEFINITY: NO BUBBLE STUDY: NO DIAGNOSIS: VOLUME OVERLOAD, STEMI CARDIAC HISTORY: CATHERIZATION: YES SURGERY: NO PROSTHETIC VALVE: NO PACEMAKER: NO MEASUREMENTS (cm) DIASTOLIC (NORMALS) SYSTOLIC (NORMALS) IVSd 1.2 (0.6-1.2) LA Diam 3.2 (1.9-4.0) LVEF 65% LVIDd 4.5 (3.5-5.7) LVIDs 2.9 (2.0-3.5) %FS 35% LVPWd 1.2 (0.6-1.2) Ao Diam 3.0 (2.0-3.7) 2 DIMENSIONAL ASSESSMENT: RIGHT ATRIUM: NORMAL LEFT ATRIUM: NORMAL RIGHT VENTRICLE: NORMAL LEFT VENTRICLE: NORMAL TRICUSPID VALVE: NORMAL MITRAL VALVE: NORMAL PULMONIC VALVE: NORMAL AORTIC VALVE: SCLEROSIS PERICARDIAL EFFUSION: NONE AORTIC ROOT: NORMAL LEFT VENTRICULAR WALL MOTION: ANTEROAPICAL HYPOKINESIS. DOPPLER/COLOR FLOW: NORMAL COMMENTS: NORMAL LEFT VENTRICULAR EJECTION FRACTION. ANTEROAPICAL HYPOKINESIS, CONSISTENT WITH CORONARY ARTERY DISEASE. NO EFFUSION. AORTIC SCLEROSIS. TECHNOLOGIST: Jose E BROWER
[2020-08-23] MEDS: predniSONE 20 MG TAB PO SCH ×2 (13:20→20:47)
[2020-08-23] MEDS ORDERED: CEFTRIAXONE/SWI 1gm 1 GM/10 ML SYR IV SCH (18:00)
[2020-08-23] MEDS ORDERED: ATORVASTATIN 80 MG TAB PO SCH ×2 (21:00)
[2020-08-23] MEDS ORDERED: WATER FOR INJ,STERILE 0 ML ONE (21:16)
[2020-08-23] MEDS ORDERED: MELATONIN 5 MG TABLET PO PRN (23:41)
[2020-08-24] MEDS: ALBUTEROL 2.5 MG/3 ML NEB SOL NEB SCH ×3 (01:15→13:13)
[2020-08-24] MEDS: IPRATROPIUM BROM 0.5MG/2.5ML NEB SCH ×3 (01:15→13:13)
[2020-08-24] MEDS: METOPROLOL TAR 25 MG TAB PO SCH (05:40)
[2020-08-24 06:16] LABS: Absolute Lymphocytes (CBC) 0.3 K/uL (0.7-4.9); Basophils % 0.2 % (0-1.3); Hematocrit 36.4 % (36.0-45.0); Lymphocytes % 3.2 % (15.3-44.8); MPV 7.5 fL (7.6-11.3); RBC Red Blood Cell Count 3.74 M/uL (3.86-4.86)
[2020-08-24 06:26] LABS: BUN Blood Urea Nitrogen 9 mg/dL (7-18); Bicarbonate 39 mmol/L (21-32); Glucose Level 112 mg/dL (74-106); Potassium 3.9 mmol/L (3.5-5.1); Sodium Level 139 mmol/L (136-145)
[2020-08-24] MEDS: FUROSEMIDE 40 MG/4 ML VIAL IV SCH (08:10)
[2020-08-24] MEDS: CLOPIDOGREL 75 MG TABLET PO SCH (08:10)
[2020-08-24] MEDS: predniSONE 20 MG TAB PO SCH (08:10)
[2020-08-24] MEDS: ASPIRIN 81 MG CHEWABLE TABLET PO SCH (08:10)
[2020-08-24] MEDS ORDERED: POTASSIUM CL SA 10 MEQ TAB PO ONE (09:00)
--- NOTE | 2020-08-24 11:42 | OP ---
Date of Procedure: 08/23/2020 Surgeon: Zak Smith MD Physician Aide: Alisa Crabtree. Procedure Performed: Emergency heart catheterization, selective coronary arteriogram, primary stent of the mid LAD. History Of Present Illness: Ms. Alegria is a 60-year-old woman, who came in with acute OR, anterolater al by EKG, continuous symptoms, positive troponin. No cardiac risk factors truly. She has a history of rheumatoid arthritis. She has had a history of pericardial effusion, status post pericardial win ryan in the past. Has COPD. Description Of Procedure: Was brought to the cath lab radiological technologist emergently, prepped and draped in routine ster ile fashion. She was given Versed for sedation. Using the Seldinger technique, after 10 cc of xyloc jazmin, a 6-Bruneian sheath was introduced in the right common femoral artery successfully. Javy cath eter left and right were used to cannulate the left main and right main. Her RCA was pretty unremark able and her circumflex was normal. She had a 99% stenosis in the mid LAD right after the first diag onal with SULEMAN 2 flow. The patient was given Angiomax. She was given aspirin and Effient. An XB LA D 3.5 guide catheter was introduced to cannulate the left main. A [place] wire was used to cross the lesion successfully. Following that, a 3.0 x 16 Synergy stent was placed at 14 atmosphere with 0% re sidual. The patient tolerated the procedure well. There were no complications. Blood Loss: 5 mL. Anesthesia: Total conscious sedation was 45 minutes. Final Diagnosis: Acute anterolateral myocardial infarction, status post successful primary stent of the LAD with SULEMAN 3 flow and no complications. The patient has received aspirin, Effient, and Angiom ax over in the catheterization. She will be admitted overnight. Hopefully send her home tomorrow. She does take Zetia at home, but this is her only cardiac medications. When she goes home, she needs to be on aspirin, Plavix, metoprolol, as well as Lipitor 80 mg daily and stop the Zetia. I will dis cuss the case further with Dr. Rizvi. We will see her in the morning. DEEJAY/JOHANN Voice ID: [id number] Report ID: [id number]
--- NOTE | 2020-08-24 11:51 | CON ---
Date of Consultation: 08/23/2020 Reason For Consultation: Acute anterolateral NV. History Of Present Illness: Ms. Alegria is a 60-year-old female, presented to the emergency room on with shortness of breath, hypoxia, chest pain, palpitation. No fever, no chills, was found to be tachycardic with some ST elevation in the anterolateral lead. Her symptoms improved after nitr oglycerin, metoprolol, oxygen, and morphine. She denied any PND, orthopnea, or pedal edema. Has had palpitations, but no syncope. Denied any fever or chills. Her main complaint was shortness of taz th and chest pressure. Past Medical History: Include rheumatoid arthritis, pericarditis, palpitation, and asthma. She has had a pericardial window before for pericardial effusion. Allergies: NONE. Review of Systems: Negative. Social History: Negative. Family History: Noncontributory. Medications: At home include inhalers, Celexa, Lunesta, Xyzal, prednisone, and Xeljanz XR for her rh eumatoid arthritis. She is also on Zetia 10 mg daily. Physical Examination: General: When I saw her, she had recurrent chest pain. STs were still elevated. Vital Signs: Her pulse was 116. She was afebrile. Pressure was 144/80. O2 saturation was 99% on 4 L of nasal cannula. HEENT: Negative. Neck: Supple. No bruit. Chest: Clear to auscultation and percussion. Cardiac: Revealed tachycardia. No murmurs, gallops, or rubs. Abdomen: Benign. Extremities: Revealed no clubbing, cyanosis, or edema. Skin: Dry and intact. Neurologic: She was nonfocal. Pulses were present distally bilaterally. Diagnostic Data: EKG showed acute NV. Troponin was 0.73. Creatinine was normal. Her hemoglobin wa s normal. Chest x-ray was unremarkable. Impression And Plan: Acute anterolateral myocardial infarction, positive troponin, continued symptom s. Patient will be taken to the pharmacy laboratory technician emergently this morning for catheterization and possible in tervention. She needs to remain on her present medical regimen for now. She is on inhalers, aspirin , Lipitor, Plavix, Lasix, metoprolol, and antibiotics. I will discuss the case further with Dr. Shelly echols after the catheterization. Her other problems including COPD, rheumatoid arthritis, and history of pericardial effusion are stable. We will get another echocardiogram today. DEEJAY/JOHANN Voice ID: [id number] Report ID: [id number]
[2020-08-24 13:28] VITALS: BP 173/62; TEMP 97.7
--- NOTE | 2020-08-24 13:54 | PN ---
Date of Progress Note: 08/24/2020 Subjective: Ms. Alegria had come in with an acute anterolateral MS, COPD exacerbation. Catheterizatio n yesterday was done emergently. The patient had a SULEMAN 2 flow in the LAD with a 90% stenosis in the mid LAD after the second diagonal. She underwent a stent of that LAD with a 3.0 x 16 Synergy with 0 % residual. Overnight, she has not revealed any complaint. Denied any chest pain or shortness of br eath. Objective: Vital Signs: Stable. She is afebrile. Chest: Revealed some expiratory wheezing. : Her groin site is intact without any hematoma. Extremities: She had good distal pulses in the right posterior tibial and dorsalis pedis. Impression: Status post acute anterior myocardial infarction, status post emergency stent of the LAD , stable, can go home. She should go home on whatever her home medication except she should stop the Zetia. I am going to put her on Lipitor, aspirin, Plavix, and Toprol. The case was discussed with Dr. Rizvi. Apparently, she is having some hypoxia from a COPD standpoint and there may be some arran gements for her to go home on home oxygen. I will be available for question. We will see her in the office in the near future. DEEJAY/JOHANN Voice ID: [id number] Report ID: [id number]
[2020-08-24 16:45] VITALS: O2SAT 96
--- NOTE | 2020-08-24 20:03 | P.DS ---
Admission Date: 08/22/20 Discharge Date: 08/24/20 Primary Care Provider: Dr. Ventura Disposition: ROUTINE DISCHARGE Discharge Condition: GOOD Reason for Admission: STEMI Consultations: Cardiology - Dr. Smith Procedures: CXR (08/22): Mild bilateral interstitial lung opacities are seen suspicious for mild pulmonary edema. The heart is quite prominent in size. No displaced fractures. TTE (08/23): NORMAL LEFT VENTRICULAR EJECTION FRACTION. ANTEROAPICAL HYPOKINESIS, CONSISTENT WITH CORONARY ARTERY DISEASE. NO EFFUSION. AORTIC SCLEROSIS. Cardiac Cath (08/23): Acute anterolateral NM, 3 x 16 SYNERGY GIULIANO placed in LAD due to 99% stenosis in the mid LAD. Problem List: ST-elevation myocardial infarction-anteriolateral Acute COPD exacerbation Lower extremity edema-suspect acute CHF Rheumatoid arthritis Brief History of Present Illness: 60yo female, PMH: RA, COPD presented to ED due to 1 week of progressively worsening SOB and b/l lower extremity edema. ED workup revealed a troponin of 0.[address] elevations in anterolateral leads. Hospital Course: Cardiology was consulted in ED, patient was placed on heparin drip until she underwent cardiac catheterization the following morning. Cardiac cath as noted above, patient underwent stenting of mid LAD due to 99% stenosis. Postoperative course was unremarkable. Patient was discharged home with new prescriptions for ASA, Plavix, metoprolol, and Lipitor 80mg daily. Her zetia was discontinued. She was noted to have significant b/l lower extremity edema on admission which improved with 40mg IV Lasix BID. Her echocardiogram was without evidence of CHF and she continue to have some edema of both legs, so she was discharged with 20mg PO Lasix. She will follow up with her PCP within [address] Smith (Cardiology) in 2- 3 weeks. Vital Signs/Physical Exam: Temp Pulse Resp BP Pulse Ox 97.7 F 84 20 173/62 H 95 08/24/20 12:00 08/24/20 12:00 08/24/20 12:00 08/24/20 12:00 08/24/20 12:00 General: Alert, In no apparent distress HEENT: Mucous membr. moist/pink Neck: Supple, JVD not distended Respiratory: Clear to auscultation bilaterally, Normal air movement Cardiovascular: Regular rate/rhythm, Normal S1 S2, Edema (1+ bilaterally to mid- mcpherson) Gastrointestinal: Soft and benign, Non-distended, No tenderness Musculoskeletal: No erythema, No tenderness Integumentary: No rashes Neurological: Normal speech, Normal affect Laboratory Data at Discharge: WBC 9.6 K/uL (4.3-10.9) 08/24/20 05:17 Hgb 11.7 g/dL (12.0-15.0) L 08/24/20 05:17 Hct 36.4 % (36.0-45.0) 08/24/20 05:17 Plt Count 292 K/uL (152-406) 08/24/20 05:17 PT 15.0 SECONDS (9.5-12.5) H 08/22/20 17:15 INR 1.28 08/22/20 17:15 APTT 43.4 SECONDS (24.3-36.9) H 08/23/20 02:12 Sodium 139 mmol/L (136-145) 08/24/20 05:17 Potassium 3.9 mmol/L (3.5-5.1) 08/24/20 05:17 BUN 9 mg/dL (7-18) 08/24/20 05:17 Creatinine 0.52 mg/dL (0.55-1.3) L 08/24/20 05:17 Glucose 112 mg/dL (74-106) H 08/24/20 05:17 Magnesium 2.1 mg/dL (1.8-2.4) 08/22/20 17:15 Total Bilirubin 0.6 mg/dL (0.2-1.0) 08/22/20 17:15 AST 15 U/L (15-37) 08/22/20 17:15 ALT 10 U/L (12-78) L 08/22/20 17:15 Alkaline Phosphatase 98 U/L (45-117) 08/22/20 17:15 Troponin I 0.45 ng/mL (0.0-0.045) H 08/23/20 02:12 Triglycerides 59 mg/dL (<150) 08/23/20 02:12 Cholesterol 95 mg/dL (<200) 08/23/20 02:12 HDL Cholesterol 41 mg/dL (40-60) 08/23/20 02:12 Cholesterol/HDL Ratio 2.32 08/23/20 02:12 Home Medications: Albuterol Sulfate [Proair Hfa] 8.5 gm IH Q4H PRN 11/11/17 Citalopram [Celexa*] 10 mg PO DAILY 11/11/17 Eszopiclone [Lunesta*] 3 mg PO BEDTIME 11/11/17 Fluticasone [Flonase 50MCG Nasal [place]*] 2 sprays NS DAILY 11/11/17 Leflunomide 20 mg PO DAILY 11/11/17 Levocetirizine Dihydrochloride [Xyzal] 5 mg PO DAILY 11/11/17 Tofacitinib Citrate [Xeljanz Xr] 1 tab PO DAILY 11/11/17 predniSONE [Prednisone*] 5 mg PO DAILY PRN 11/11/17 Acetaminophen [Tylenol] 325 mg PO DAILY PRN 08/23/20 Ergocalciferol (Vitamin D2) [Vitamin D 50,000 Unit Cap] 1 cap PO SEECOM 08/23/20 Glycopyrrolate/Formoterol Fum [Bevespi Aerosphere Inhaler] 2 puff IH BID 08/23/20 Magnesium Oxide [Magnesium] 1 tab PO DAILY 08/23/20 Atorvastatin Calcium [Lipitor] 80 mg PO BEDTIME #30 tab 08/24/20 Clopidogrel Bisulfate [Plavix] 75 mg PO DAILY #30 tablet 08/24/20 Furosemide [Lasix] 20 mg PO DAILY 30 Days #30 tablet 08/24/20 Metoprolol Succinate [Toprol Xl] 50 mg PO DAILY #30 tab 08/24/20 New Medications: Furosemide [Lasix] 20 mg PO DAILY 30 Days #30 tablet Atorvastatin Calcium [Lipitor] 80 mg PO BEDTIME #30 tab Clopidogrel Bisulfate [Plavix] 75 mg PO DAILY #30 tablet Metoprolol Succinate [Toprol Xl] 50 mg PO DAILY #30 tab Patient Discharge Instructions: Follow up with Dr. Ventura in 1 weeks. Follow up with Dr. Smith in 2-3 weeks. Take a daily Aspirin 81 mg Diet: AHA Activity: Ad miguel Followup: Zak Smith MD [ACTIVE - CAN ADMIT] - 1-2 Weeks (mechanical service specialist- follow up in 2 weeks, call to schedule an appointment ) Manuel Ventura MD [Primary Care Provider] - Time spent managing pt's care (in minutes): 40
== END 2020-08-24 16:20 | disposition home or self-care (01) | DRG 247 ==
LOC: ER 15:12 → ERHOLD 19:15 → 2ND 08-23 09:20
PROVIDERS: ADMIT Hospitalist; ATTEND Hospitalist
PROC: 027034Z Dilation of Coronary Artery, One Artery with Drug-eluting Intraluminal Device, Percutaneous Approach (ICD-10-PCS; principal; 2020-08-23)
PROC: 4A023N7 Measurement of Cardiac Sampling and Pressure, Left Heart, Percutaneous Approach (ICD-10-PCS; 2020-08-23)
PROC: B2111ZZ Fluoroscopy of Multiple Coronary Arteries using Low Osmolar Contrast (ICD-10-PCS; 2020-08-23)
DX: I21.09 ST elevation (STEMI) myocardial infarction involving other coronary artery of anterior wall (principal); J44.1 Chronic obstructive pulmonary disease with (acute) exacerbation; J81.1 Chronic pulmonary edema; M06.9 Rheumatoid arthritis, unspecified; F17.200 Nicotine dependence, unspecified, uncomplicated; Z79.52 Long term (current) use of systemic steroids; Z79.02 Long term (current) use of antithrombotics/antiplatelets; Z79.899 Other long term (current) drug therapy; Z20.828 Contact with and (suspected) exposure to other viral communicable diseases
CPT/HCPCS: 36415; 71045; 80048; 80061; 80076; 82550; 82553; 82805; 83735; 83880; 84439; 84443; 84484; 85025; 85610; 85730; 92928; 93005; 93306; 93454; 94640; 96365; 99285; C1725; C1760; C1877; C1893; J0456; J0583; J0696; J1644; J1940; J2250; J3010; J7030; J7050; J7512; U0003

== ENCOUNTER 2023-12-25 15:54 | Inpatient (IN) | payer OTHER ==
[2023-12-25] MEDS ORDERED: ASPIRIN 81 MG CHEWABLE TABLET ONE (16:22)
[2023-12-25] MEDS ORDERED: SIMETHICONE 80 MG CHEWABLE TAB ONE (16:22)
[2023-12-25 16:54] LABS: Absolute Lymphocytes (CBC) 0.3 K/uL (0.7-4.9); Hematocrit 29.3 % (36.0-45.0); Lymphocytes % 3.2 % (15.3-44.8); MCV 93.3 fL (80-100); MPV 6.8 fL (7.6-11.3); Platelets 289 thou/uL (152-406); RBC Red Blood Cell Count 3.14 M/uL (3.86-4.86)
[2023-12-25 17:00] LABS: Arterial Blood Carboxyhemoglob 3.2 % (0-1.5); Blood Gas Oxyhemoglobin 91.3 % (94-97); Blood O2 Saturation 95.9 % (92-98.5)
[2023-12-25 17:00] LABS: Protime INR 1.24
[2023-12-25 17:20] LABS: Bilirubin Direct 0.4 mg/dL (0-0.2); Bilirubin Indirect, Calculated 0.6 mg/dL (0.2-0.8); Magnesium 1.6 mg/dL (1.6-2.4); Potassium 3.3 mEq/L (3.5-5.1); Thyroid Stimulating Hormone 1.49 uIU/mL (0.358-3.740); Troponin High Sensitivity 20.7 pg/mL (<58.9)
[2023-12-25 17:56] LABS: Blood Morphology Comment NOT SEEN (NOT SEEN); Platelet Estimate ADEQ
--- NOTE | 2023-12-25 17:58 | ER ---
Nurse's Notes [facility] Name: García Alegria Age: 63 yrs Sex: Female : 1960 Arrival Date: 12/25/2023 Time: 15:54 Bed 3 Private MD: Diagnosis: COPD/ Chronic obstructive pulmonary disease with (acute) exacerbation;Fluid overload, unspecified;Other disorders of electrolyte and fluid balance, not elsewhere classified;Other pneumonia, unspecified organism-with bandemia Presentation: 12/25 16:11 Chief complaint: SOB and pain with breathing x 4 days. Coronavirus screen: Client hb presents with at least one sign or symptom that may indicate coronavirus-19. Provider contacted for isolation considerations. Ebola Screen: No symptoms or risks identified at this time. Initial Sepsis Screen: Does the patient meet any 2 criteria? RR > 20 per min. HR > 90 bpm. No. Patient's initial sepsis screen is negative. Does the patient have a suspected source of infection? No. Patient's initial sepsis screen is negative. Risk Assessment: Do you want to hurt yourself or someone else? Patient reports no desire to harm self or others. Onset of symptoms was February 20, 2024. 16:11 Method Of Arrival: Wheelchair hb 16:11 Acuity: KATYA 2 hb Historical: - Allergies: 16:13 No Known Allergies; hb - PMHx: 16:13 Asthma; Depression; Immune Suppression; dyspnea; pericarditis; Rheumatoid Arthritis; hb Tachycardia; Tachypnea; - Immunization history:: Adult Immunizations up to date. - Social history:: Smoking status: Patient reports the use of cigarette tobacco products. Screenin:33 [facility] ED Fall Risk Assessment (Adult) History of falling in the last 3 months, ld1 including since admission No falls in past 3 months (0 pts). Abuse screen: Denies threats or abuse. Denies injuries from another. Nutritional screening: No deficits noted. Tuberculosis screening: No symptoms or risk factors identified. Assessment: 16:32 General: Appears in no apparent distress. comfortable, Behavior is calm, cooperative, ld1 appropriate for age. Pain: Complains of pain in right toes and right foot and right ankle and right midcalf and right lower thigh and right upper thigh and left toes and left foot and left ankle and left midcalf and left lower thigh and left upper thigh and left upper quadrant and right upper quadrant and right posterior lower lobe and right posterior middle lobe Pain does not radiate. Pain currently is 8 out of 10 on a pain scale. Quality of pain is described as throbbing, Pain began 2-3 days ago. Is continuous. Neuro: Level of Consciousness is awake, alert, obeys commands, Oriented to person, place, time, situation, Appropriate for age. Cardiovascular: Capillary refill < 3 seconds Patient's skin is warm and dry. Rhythm is sinus tachycardia. Respiratory: Airway is patent Respiratory effort is even, unlabored, Breath sounds are clear bilaterally. Respiratory: Reports shortness of breath at rest on exertion. GI: Abdomen is round non-distended. : No signs and/or symptoms were reported regarding the genitourinary system. EENT: No signs and/or symptoms were reported regarding the EENT system. Derm: No signs and/or symptoms reported regarding the dermatologic system. 17:56 Reassessment: Patient appears in no apparent distress at this time. No changes from ld1 previously documented assessment. Patient and/or family updated on plan of care and expected duration. Pain level reassessed. Patient is alert, oriented x 3, equal unlabored respirations, skin warm/dry/pink. 19:35 Reassessment: Patient appears in no apparent distress at this time. No changes from tm6 previously documented assessment. 20:20 Reassessment: Patient appears in no apparent distress at this time. No changes from km8 previously documented assessment. Patient and/or family updated on plan of care and expected duration. Pain level reassessed. Patient is alert, oriented x 3, equal unlabored respirations, skin warm/dry/pink. Vital Signs: 16:11 BP 159 / 79; Pulse 123; Resp 24; Temp 98.5; Pulse Ox 91% on 3 lpm NC; Weight 95.25 kg; hb Height 5 ft. 4 in. ; Pain 9/10; 16:32 BP 130 / 70; Pulse 104; Resp 22; Pulse Ox 99% on R/A; ld1 17:56 BP 140 / 73; Pulse 81; Resp 23; Pulse Ox 98% on R/A; ld1 19:34 BP 146 / 66; Pulse 92; Pulse Ox 100% on 3 lpm NC; Pain 9/10; tm6 20:00 BP 135 / 70; Pulse 82; Resp 16; Pulse Ox 99% on 3 lpm NC; km8 16:11 Body Mass Index 36.05 (95.25 kg, 162.56 cm) hb 16:11 Pain Scale: Adult hb 19:34 Pain Scale: Adult tm6 ED Course: 15:57 Patient arrived in ED. mg5 15:59 Rita Riley [facility]C [facility]. snw 15:59 Jyotsna Keene MD is Attending Physician. snw 16:13 Triage completed. hb 16:13 Arm band placed on. hb 16:19 Otilia Love, DENICE is Primary Nurse. ld1 16:32 Inserted saline lock: 20 gauge in left forearm, using aseptic technique. Blood ld1 collected. 16:33 Patient has correct armband on for positive identification. Placed in gown. Bed in low ld1 position. Call light in reach. Side rails up X2. tunneling machine operator on. Pulse ox on. NIBP on. Door closed. Noise minimized. Warm blanket given. 16:33 No provider procedures requiring assistance completed. ld1 17:02 XRAY Chest (1 view) In Process Unspecified. EDMS 17:56 Lambert Ball MD is Hospitalizing Provider. snw 18:20 Blood Culture Adult (2) Sent. ld1 20:18 Provided Education on: admission process. km8 20:18 Patient admitted, IV remains in place. km8 Administered Medications: 16:32 Drug: Aspirin PO Chewable Tablet 324 mg PO once; 81 mg tablets x 4 Route: PO; ld1 19:00 Follow up: Response: No adverse reaction km8 16:32 Drug: Simethicone PO 240 mg PO once Route: PO; ld1 20:19 Follow up: Response: No adverse reaction km8 18:20 Drug: Rocephin IV 1 grams IV at calculated rate once; Given slow IV push per pharmacy ld1 instructions Route: IV; Rate: calculated rate; Site: left antecubital; 19:15 Follow up: Response: No adverse reaction; IV Status: Completed infusion km8 Medication: 16:33 VIS not applicable for this client. ld1 Outcome: 17:57 Decision to Hospitalize by Provider. snw 20:37 Admitted to Med/surg accompanied by tech, via wheelchair, room 406, with oxygen, with tm6 chart, Report called to [place] GALDAMEZ 20:37 Condition: stable 20:37 Instructed on the need for admit, 20:52 Patient left the ED. jb4 Signatures: Dispatcher [employer] EDMS Rita Riley, VARNISH FILTERER-C VARNISH FILTERER-Csnw Cathy Ballesteros, RN RN Raji Arenas RN RN jb4 Otilia Love RN RN ld1 Gladis Eugene 5 Kassandra Quispe RN RN km8 Mariaelena Jacobs RN RN tm6
--- NOTE | 2023-12-25 17:58 | EDPHYS ---
Physician Documentation [facility] Name: García Alegria Age: 63 yrs Sex: Female : 1960 Arrival Date: 12/25/2023 Time: 15:54 Bed 3 Private MD: ED Physician Jyotsna Keene HPI: 12/25 16:13 This 63 yrs old Female presents to ER via Unassigned with complaints of Breathing snw Difficulty, Pain. 16:13 The patient has shortness of breath at rest. Onset: The symptoms/episode began/occurred snw acutely. Duration: The symptoms are continuous. The patient's shortness of breath is aggravated by exertion. The patient has experienced similar episodes in the past. The patient has been recently seen by a physician: the patient's primary care provider, Dr. Ventura. on O2 at 3L via N/C consistently. Historical: - Allergies: 16:13 No Known Allergies; hb - PMHx: 16:13 Asthma; Depression; Immune Suppression; dyspnea; pericarditis; Rheumatoid Arthritis; hb Tachycardia; Tachypnea; - Immunization history:: Adult Immunizations up to date. - Social history:: Smoking status: Patient reports the use of cigarette tobacco products. ROS: 16:12 Constitutional: Negative for fever, chills, and weight loss, Eyes: Negative for injury, snw pain, redness, and discharge, ENT: Negative for injury, pain, and discharge, Neck: Negative for injury, pain, and swelling, Cardiovascular: Negative for chest pain, palpitations, and edema, 16:12 Back: Negative for injury and pain, : Negative for injury, bleeding, discharge, and swelling, MS/Extremity: Negative for injury and deformity, Skin: Negative for injury, rash, and discoloration, Neuro: Negative for headache, weakness, numbness, tingling, and seizure, Psych: Negative for depression, anxiety, suicide ideation, homicidal ideation, and hallucinations, 16:12 Respiratory: Positive for cough, orthopnea, shortness of breath, at rest. 16:12 Abdomen/GI: Positive for constipation, abdominal cramps, Exam: 16:10 Head/Face: Normocephalic, atraumatic. Eyes: Pupils equal round and reactive to light, snw extra-ocular motions intact. Lids and lashes normal. Conjunctiva and sclera are non-icteric and not injected. Cornea within normal limits. Periorbital areas with no swelling, redness, or edema. ENT: Nares patent. No nasal discharge, no septal abnormalities noted. Tympanic membranes are normal and external auditory canals are clear. Oropharynx with no redness, swelling, or masses, exudates, or evidence of obstruction, uvula midline. Mucous membranes moist. Neck: Trachea midline, no thyromegaly or masses palpated, and no cervical lymphadenopathy. Supple, full range of motion without nuchal rigidity, or vertebral point tenderness. No Meningismus. Chest/axilla: Normal chest wall appearance and motion. Nontender with no deformity. No lesions are appreciated. 16:10 Respiratory: Lungs have equal breath sounds bilaterally, clear to auscultation and percussion. No rales, rhonchi or wheezes noted. No increased work of breathing, no retractions or nasal flaring. Back: No spinal tenderness. No costovertebral tenderness. Full range of motion. Skin: Warm, dry with normal turgor. Normal color with no rashes, no lesions, and no evidence of cellulitis. MS/ Extremity: Pulses equal, no cyanosis. Neurovascular intact. Full, normal range of motion. Neuro: Awake and alert, GCS 15, oriented to person, place, time, and situation. Cranial nerves II-XII grossly intact. Motor strength 5/5 in all extremities. Sensory grossly intact. Cerebellar exam normal. Normal gait. Psych: Awake, alert, with orientation to person, place and time. Behavior, mood, and affect are within normal limits. 16:10 Constitutional: The patient appears alert, awake, obese, pale, uncomfortable, 16:10 Cardiovascular: Rate: tachycardic, Rhythm: regular, Heart sounds: normal, 16:10 Respiratory: the patient does not display signs of respiratory distress, Respirations: prolonged exhalation, shallow respirations, tachypnea, Breath sounds: decreased breath sounds, that are moderate, rhonchi, that are moderate, are heard in the right posterior middle lobe and right posterior lower lobe, 16:10 Abdomen/GI: Inspection: abdomen appears normal, Bowel sounds: normal, Palpation: moderate abdominal tenderness, in the right upper quadrant and left upper quadrant, 16:14 Cardiovascular: Edema: 3+ edema to level of left upper thigh, left lower thigh, left snw midcalf, left ankle, left foot, left toes, right upper thigh, right lower thigh, right midcalf, right ankle, right foot and right toes, Vital Signs: 16:11 BP 159 / 79; Pulse 123; Resp 24; Temp 98.5; Pulse Ox 91% on 3 lpm NC; Weight 95.25 kg; hb Height 5 ft. 4 in. ; Pain 9/10; 16:32 BP 130 / 70; Pulse 104; Resp 22; Pulse Ox 99% on R/A; ld1 17:56 BP 140 / 73; Pulse 81; Resp 23; Pulse Ox 98% on R/A; ld1 19:34 BP 146 / 66; Pulse 92; Pulse Ox 100% on 3 lpm NC; Pain 9/10; tm6 20:00 BP 135 / 70; Pulse 82; Resp 16; Pulse Ox 99% on 3 lpm NC; km8 16:11 Body Mass Index 36.05 (95.25 kg, 162.56 cm) hb 16:11 Pain Scale: Adult hb 19:34 Pain Scale: Adult tm6 MDM: 16:00 Patient medically screened. snw 16:16 Differential diagnosis: asthma, Bronchitis CHF exacerbation, Chronic Obstructive snw Pulmonary Disease Myocardial Infarction pulmonary edema, Unstable Angina. Data reviewed: vital signs, nurses notes, lab test result(s), EKG, radiologic studies. 17:53 Antibiotic administration: s/p blood cultures, will give Rocephin for COPD snw exacerbation/pneumonia. 12/25 16:08 Order name: Basic Metabolic Panel; Complete Time: 17:33 snw 12/25 16:08 Order name: CBC with Diff; Complete Time: 17:57 snw 12/25 16:08 Order name: LFT's; Complete Time: 17:33 snw 12/25 16:08 Order name: Magnesium; Complete Time: 17:33 snw 12/25 16:08 Order name: NT PRO-BNP; Complete Time: 17:33 snw 12/25 16:08 Order name: PT-INR; Complete Time: 17:01 snw 12/25 16:08 Order name: Troponin HS; Complete Time: 17:33 snw 12/25 16:08 Order name: ABG; Complete Time: 17:03 snw 12/25 16:09 Order name: TSH; Complete Time: 17:33 snw 12/25 17:02 Order name: Manual Differential; Complete Time: 17:57 EDMS 12/25 17:52 Order name: Blood Culture Adult (2) snw 12/25 20:07 Order name: CBC with Automated Diff EDMS 12/25 20:07 Order name: CBC with Automated Diff EDMS 12/25 20:07 Order name: Comprehensive Metabolic Panel EDMS 12/25 20:07 Order name: Comprehensive Metabolic Panel EDMS 12/25 20:07 Order name: Lipid Profile EDMS 12/25 20:07 Order name: Lipid Profile EDMS 12/25 20:07 Order name: Magnesium EDMS 12/25 20:07 Order name: Magnesium EDMS 12/25 20:07 Order name: Troponin High Sensitivity EDMS 12/25 20:07 Order name: Troponin High Sensitivity EDMS 12/25 20:07 Order name: Troponin High Sensitivity EDMS 12/25 20:07 Order name: Troponin High Sensitivity EDMS 12/25 16:08 Order name: XRAY Chest (1 view); Complete Time: 18:46 snw 12/25 16:08 Order name: EKG; Complete Time: 16:09 snw 12/25 16:08 Order name: Cardiac monitoring; Complete Time: 16:19 snw 12/25 16:08 Order name: EKG - Nurse/Tech; Complete Time: 16:36 snw 12/25 16:08 Order name: IV Saline Lock; Complete Time: 16:32 snw 12/25 16:08 Order name: Labs collected and sent; Complete Time: 16:32 snw 12/25 16:08 Order name: O2 Per Protocol; Complete Time: 16:19 snw 12/25 16:08 Order name: O2 Sat Monitoring; Complete Time: 16:19 snw EC:17 Rate is 113 beats/min. Rhythm is regular. QRS interval is prolonged. Q waves are snw Present in leads I, V4, V5, V6. Clinical impression: Abnormal EKG without significant change. Administered Medications: 16:32 Drug: Aspirin PO Chewable Tablet 324 mg PO once; 81 mg tablets x 4 Route: PO; ld1 19:00 Follow up: Response: No adverse reaction 8 16:32 Drug: Simethicone PO 240 mg PO once Route: PO; ld1 20:19 Follow up: Response: No adverse reaction 8 18:20 Drug: Rocephin IV 1 grams IV at calculated rate once; Given slow IV push per pharmacy ld1 instructions Route: IV; Rate: calculated rate; Site: left antecubital; 19:15 Follow up: Response: No adverse reaction; IV Status: Completed infusion km8 Disposition Summary: 12/25/23 17:57 Hospitalization Ordered Notes: Hospitalization Status: Inpatient Admission snw Provider: Lambert Ball snw Location: Telemetry/MedSurg (Inpatient) snw Condition: Stable snw Problem: an acute exacerbation snw Symptoms: are unchanged snw Bed/Room Type: Standard snw Room Assignment: [id number](12/25/23 20:16) jb4 Diagnosis - COPD/ Chronic obstructive pulmonary disease with (acute) exacerbation snw - Fluid overload, unspecified snw - Other disorders of electrolyte and fluid balance, not elsewhere classified snw - Other pneumonia, unspecified organism - with bandemia snw Forms: - Medication Reconciliation Form snw - SBAR form snw - Leadership Thank You Letter snw Signatures: Dispatcher [employer] EDMS Rita Riley, SUPERVISOR [employer]-C SUPERVISOR [employer]-Csnw Cathy Ballesteros, RN RN Raji Arenas RN RN jb4 Otilia Love RN RN ld1 Jyotsna Keene MD MD sp3 Kassandra Quispe RN km8 Corrections: (The following items were deleted from the chart) 16:16 16:10 Abdomen/GI: Inspection: abdomen appears normal, Bowel sounds: normal, Palpation: snw moderate abdominal tenderness, in the right upper quadrant and left upper quadrant, snw 20:16 17:57 snw jb4
[2023-12-25] MEDS ORDERED: CEFTRIAXONE 1000 MG/VIAL ONE (18:03)
--- NOTE | 2023-12-25 18:11 | RAD REPORT ---
EXAM DESCRIPTION: RAD - Chest Single View - 12/25/2023 5:00 pm CLINICAL HISTORY: DYSPNEA Chest pain. COMPARISON: Chest Pa And Lat (2 Views) dated 12/17/2023; Chest Single View dated 08/22/2020; Chest Pa And Lat (2 Views) dated 07/23/2020; Chest Pa And Lat (2 Views) dated 08/21/2019 FINDINGS: Portable technique limits examination quality. The lungs are grossly clear. The heart is moderately enlarged in size. No displaced fractures.Trace l eft pleural effusion. IMPRESSION: No acute intrathoracic process suspected.
[2023-12-25] MEDS ORDERED: ALBUTEROL 2.5 MG/3 ML NEB SOL NEB PRN (20:02)
[2023-12-25] MEDS ORDERED: ALPRAZOLAM 0.25 MG TABLET PO PRN (20:02)
--- NOTE | 2023-12-25 20:06 | P.HP ---
Certification for Inpatient Patient admitted to: Observation With expected LOS: <2 Midnights Practitioner: I am a practitioner with admitting privileges, knowledge of patient current condition, hospital course, and medical plan of care. Services: Services provided to patient in accordance with Admission requirements found in Title 42 Section 412.3 of the Code of Federal Regulations Patient History Date of Service: 12/26/23 Reason for admission: Shortness of breath, CHF exacerbation. History of Present Illness: 63-year-old female patient with medical history significant for hypertension, COPD, hyperlipidemia, who was evaluated for episode of worsening shortness of breath and leg swelling. She reported that she was having shortness of breath and leg swelling for couple of weeks. No chest pain reported. No fever no, no chills reported. She has a cough but is nonproductive of sputum. In the ED chest x-ray done showed no overt acute intrathoracic abnormality except for cardiomegaly. She had does have no abnormal electrolytes labs and because of concerns for CHF exacerbation she was admitted for IV diuresis and cardiology evaluation. Allergies No Known Allergies Allergy (Verified 11/11/17 22:26) Home Medications: Albuterol Sulfate [Proair Hfa] 1 puff IH PRN PRN 12/26/23 Aspirin [Aspirin EC] 81 mg PO DAILY 12/26/23 Atorvastatin Calcium [Lipitor*] 20 mg PO DAILY 12/26/23 Duloxetine [Cymbalta *] 30 mg PO DAILY 12/26/23 Eszopiclone 3 mg PO BEDTIME 12/26/23 Fluticasone Propionate 2 spray IN BID 12/26/23 Fluticasone Propionate 2 spray IN BID 12/26/23 Folic Acid 1 mg PO DAILY 12/26/23 Levocetirizine Dihydrochloride [24Hr Allergy Relief] 5 mg PO DAILY 12/26/23 Linaclotide [Linzess] 290 mg PO DAILY 12/26/23 Melatonin [Melatonin*] 3 mg PO BEDTIME 12/26/23 Metoprolol Succinate 50 mg PO DAILY 12/26/23 Sacubitril/Valsartan [Entresto 49 mg-51 mg Tablet] 1 tab PO BID 12/26/23 Upadacitinib [Rinvoq] 15 mg PO DAILY 12/26/23 predniSONE [Prednisone*] 5 mg PO PRN PRN 12/26/23 - Past Medical/Surgical History Diabetic: No -: COPD -: Rheumatoid Arthritis -: Depression -: Allergies -: Pericarditis -: Gallbladder -: Pericardial window Psychosocial/ Personal History: Patient currently lives at home with her family and is retired. - Family History Father -: Cancer, Other (see notes) Notes: Blood clot, Mother -: Other (see notes) Notes: Cataracts - Social History Alcohol use: No CD- Drugs: No Caffeine use: Yes Review of Systems General: As per HPI Eyes: Unremarkable ENT: Unremarkable Respiratory: Shortness of Breath, SOB with Excertion Cardiovascular: Orthopnea, Paroxysmal Noc. Dyspnea Gastrointestinal: Unremarkable Genitourinary: Unremarkable Musculoskeletal: Unremarkable Integumentary: Unremarkable Neurological: Unremarkable Lymphatics: Unremarkable Physical Examination - Physical Exam General: Alert, Oriented x3, Moderate distress HEENT: Atraumatic Neck: Supple Respiratory: Diminished Cardiovascular: Regular rate/rhythm, Normal S1 S2 Gastrointestinal: Soft and benign Musculoskeletal: Swelling Neurological: Normal speech, Normal strength at 5/5 x4 extr - Studies Laboratory Data (last 24 hrs) 12/25/23 12/25/23 12/25/23 16:29 16:29 16:29 WBC 10.80 Hgb 9.8 L Hct 29.3 L Plt Count 289 PT 13.6 H INR 1.24 Sodium 129 L Potassium 3.3 L BUN 14 Creatinine 0.67 Glucose 126 H Magnesium 1.6 Total Bilirubin 1.0 AST 10 L ALT 12 L Alkaline Phosphatase 78 Assessment and Plan - Plan CHF exacerbation: Clinical symptomatology and physical examination findings are concerning. Will continue on IV Lasix, monitor strict input and output fluid restriction of 1.2 L/day. Will obtain echocardiogram to assess cardiac function. Hyponatremia: Sodium is low at 129. This is deemed secondary to dilutional effect from excess free water retention due to CHF. Diuresis has been started. Follow trend on daily labs. Hypokalemia: Potassium is low at 3.3. Replete and follow levels on daily labs. Hypertension: We will monitor vital signs per unit protocol and continue outpatient antihypertensive medication. Hyperlipidemia: We will continue statin therapy. History of COPD: Will continue breathing treatment. Prophylaxis: Lovenox for DVT prophylaxis CODE STATUS: Full code Disposition: We will manage CHF exacerbation and she will be discharged when she is deemed clinically stable. - Advance Directives Does patient have a Living Will: No Does patient have a Durable POA for Healthcare: No
[2023-12-25] MEDS ORDERED: HYDROMORPHONE HCL 0.5 MG/0.5 ML INJ ONE (20:17)
[2023-12-25] MEDS: HYDROMORPHONE HCL 0.5 MG/0.5 ML INJ IV PRN (20:20)
[2023-12-25 21:25] VITALS: BMI 36.0
[2023-12-25] MEDS: ACETAMINOPHEN 325 MG TABLET PO PRN (22:35)
[2023-12-25] MEDS: DOCUSATE NA 100 MG CAP PO SCH (22:36)
[2023-12-26] MEDS: IPRATROPIUM BROM 0.5MG/2.5ML NEB SCH (02:20)
[2023-12-26 05:41] LABS: Absolute Lymphocytes (CBC) 0.3 K/uL (0.7-4.9); Hematocrit 26.4 % (36.0-45.0); Lymphocytes % 3.2 % (15.3-44.8); MCV 94.4 fL (80-100); MPV 6.9 fL (7.6-11.3); Platelets 250 thou/uL (152-406); RBC Red Blood Cell Count 2.79 M/uL (3.86-4.86)
[2023-12-26 05:58] LABS: AST/SGOT 28 U/L (15-37); Albumin 2.6 g/dL (3.4-5.0); Alkaline Phosphatase 77 U/L (45-117); BUN Blood Urea Nitrogen 15 mg/dL (7-18); Bicarbonate 38 mEq/L (21-32); Bilirubin Total 0.9 mg/dL (0.2-1.0); Glomerular Filtration Rate 101 ml/min (=/>90); Glucose Level 113 mg/dL (74-106); HDL Cholesterol 60 mg/dL (40-60); LDL Cholesterol, Calculated 20 mg/dL (<130); Magnesium 1.6 mg/dL (1.6-2.4); Potassium 3.2 mEq/L (3.5-5.1); Protein, Total 6.2 g/dL (6.4-8.2); Sodium Level 130 mEq/L (136-145)
[2023-12-26 05:59] LABS: ALT/SGPT < 10 U/L (13-56)
[2023-12-26] MEDS: ONDANSETRON 4 MG/2 ML VIAL IV PRN (06:19)
[2023-12-26] MEDS: FUROSEMIDE 20 MG/ 2ML VIAL IV SCH (06:19)
[2023-12-26] MEDS: MAGNESIUM 50% 3 GM in NA CHLORIDE 0.9% 100 ML IV ONE (07:32)
[2023-12-26] MEDS: ENOXAPARIN 40 MG/0.4 ML SQ SCH (08:05)
[2023-12-26] MEDS: POTASSIUM CL SA 10 MEQ TAB PO ONE (08:08)
[2023-12-26] MEDS: Oxycodone HCl/Acetaminophen 5/325 MG TAB PO PRN (09:14)
[2023-12-26] MEDS: POTASSIUM CL SA 10 MEQ TAB PO SCH ×2 (09:14→12:32)
[2023-12-26] MEDS: MAGNESIUM SULFATE 1 gm IVPB 1 GM/100 ML BAG IV ONE (09:14)
--- NOTE | 2023-12-26 09:38 | P.PN ---
Subjective Date of Service: 12/26/23 Chief Complaint: Shortness of breath, CHF exacerbation. Pt is sitting on the edge of the bed. She is using 3L BNC (baseline at home) She complains of back pain and wants prn percocet. Pt has leg edema. No other complaints. Review of Systems Unremarkable General: Unremarkable Eyes: Unremarkable ENT: Unremarkable Respiratory: Unremarkable Cardiovascular: Edema Gastrointestinal: Unremarkable Genitourinary: Unremarkable Musculoskeletal: Back Pain Integumentary: Unremarkable Neurological: Unremarkable Lymphatics: Unremarkable Physical Examination - Vital Signs Temperature: 96.8 F Blood Pressure: 134/67 Pulse: 108 Respirations: 18 Pulse Ox (%): 96 - Physical Exam General: Alert, In no apparent distress, Oriented x3 HEENT: Atraumatic, Normocephalic, PERRLA Neck: Supple, 2+ carotid pulse no bruit Respiratory: Clear to auscultation bilaterally, Normal air movement Cardiovascular: No edema, Normal pulses, Regular rate/rhythm, Normal S1 S2 Capillary refill: <2 Seconds Gastrointestinal: Normal bowel sounds, Soft and benign, Non-distended Musculoskeletal: No clubbing, No swelling Integumentary: No rashes, No breakdown Neurological: Normal speech, Normal strength at 5/5 x4 extr, Normal tone, Sensation intact, Cranial nerves 3-12 intact Lymphatics: No axilla or inguinal lymphadenopathy - Studies Laboratory Data (last 24 hrs) 12/25/23 12/25/23 12/25/23 16:29 16:29 16:29 WBC 10.80 Hgb 9.8 L Hct 29.3 L Plt Count 289 PT 13.6 H INR 1.24 Sodium 129 L Potassium 3.3 L BUN 14 Creatinine 0.67 Glucose 126 H Magnesium 1.6 Total Bilirubin 1.0 AST 10 L ALT 12 L Alkaline Phosphatase 78 Assessment And Plan - Plan Acute CHF exacerbation: Pt has leg edema. Will continue lasix, strict I/O, low salt diet and daily weight. Echo from 08/2023 showed EF 65%. BNP is 1472. Hyponatremia: Sodium is low at 130 <- 129. Likely due to hypervolemia. Will improve with diuresis. Will trend Na level. Hypokalemia: K is 3.2. Will replete and monitor. Mag is 1.6. Hypomagnesemia: mag is 1.6. Will replete andmonitor. Hypertension: Will continue home med. Anemia: hgb is 8.8. Will monitor H/H Hyperlipidemia: Continue statin therapy. History of COPD: stable. Will continue 3L BnC and prn duoneb. DVT ppx: Lovenox Code: Full code Disposition: Pending hospital course.
[2023-12-26] MEDS: POLYETHYL GLY 3350 17 GM/DOSE PO PRN (18:08)
[2023-12-27 07:25] LABS: Absolute Lymphocytes (CBC) 0.4 K/uL (0.7-4.9); Hematocrit 29.1 % (36.0-45.0); Lymphocytes % 3.6 % (15.3-44.8); MCV 94.6 fL (80-100); MPV 6.8 fL (7.6-11.3); Platelets 278 thou/uL (152-406); RBC Red Blood Cell Count 3.08 M/uL (3.86-4.86)
[2023-12-27 07:31] LABS: Magnesium 1.8 mg/dL (1.6-2.4); Potassium 4.1 mEq/L (3.5-5.1)
[2023-12-27] MEDS: MAGNESIUM SULFATE 1 gm IVPB 1 GM/100 ML BAG IV ONE (09:52)
--- NOTE | 2023-12-27 10:26 | P.PN ---
Subjective Date of Service: 12/27/23 Chief Complaint: Shortness of breath, CHF exacerbation. Pt is resting comfortably in bed. She is using 3L BNC (baseline at home) She complains of back pain and wants prn percocet. Pt has leg edema. No other complaints. Review of Systems Unremarkable General: Unremarkable Eyes: Unremarkable ENT: Unremarkable Respiratory: Unremarkable Cardiovascular: Unremarkable Gastrointestinal: Unremarkable Genitourinary: Unremarkable Musculoskeletal: Back Pain Integumentary: Unremarkable Neurological: Unremarkable Lymphatics: Unremarkable Physical Examination - Vital Signs Temperature: 97.5 F Blood Pressure: 117/57 Pulse: 93 Respirations: 17 Pulse Ox (%): 95 - Physical Exam General: Alert, In no apparent distress, Oriented x3 HEENT: Atraumatic, Normocephalic, PERRLA Neck: Supple, 2+ carotid pulse no bruit Respiratory: Clear to auscultation bilaterally, Normal air movement Cardiovascular: Normal pulses, Regular rate/rhythm, Normal S1 S2 Capillary refill: <2 Seconds Gastrointestinal: Normal bowel sounds, Soft and benign, Non-distended Musculoskeletal: No clubbing, No swelling Integumentary: No rashes, No breakdown Neurological: Normal gait, Normal speech, Normal strength at 5/5 x4 extr Lymphatics: No axilla or inguinal lymphadenopathy Assessment And Plan - Plan Acute CHF exacerbation: Pt has leg edema. Will continue lasix, strict I/O, low salt diet and daily weight. Echo from 08/2023 showed EF 65%. BNP is 1472. Hyponatremia: Sodium is low at 128<- 130 <- 129. Likely due to hypervolemia. Will improve with diuresis. Will trend Na level. Hypokalemia: K is 4.1<- 3.2. Will replete and monitor. Mag is 1.6. Hypomagnesemia: mag is 1.6. Repleted. Will monitor. Hypertension: Will continue home med. Anemia: hgb is 9.5 <- 8.8. Will monitor H/H Hyperlipidemia: Continue statin therapy. History of COPD: stable. Will continue 3L BnC and prn duoneb. DVT ppx: Lovenox Code: Full code Disposition: Pending hospital course.
[2023-12-27] MEDS: SODIUM CHLORIDE 1 GM TAB PO SCH (12:02)
--- NOTE | 2023-12-27 15:04 | EKG ---
Test Date: 2023-12-25 Test Time: 16:13:34 Allergy Specialist: JEFF MEASUREMENT RESULTS: Intervals: Rate: 113 DE: 150 QRSD: 120 QT: 352 QTc: 482 [place]: P: 72 DE: 150 QRS: -45 T: 102 INTERPRETIVE STATEMENTS: Sinus tachycardia RSR' or QR pattern in V1 suggests right ventricular conduction delay Left anterior fascicular block Left ventricular hypertrophy with QRS widening and repolarization abnormality Cannot rule out Septal infarct, age undetermined Lateral infarct, age undetermined Abnormal ECG Compared to ECG 08/22/2020 18:20:34 Left anterior fascicular block now present Left ventricular hypertrophy now present Early repolarization now present Left-axis deviation no longer present Myocardial infarct finding still present Electronically Signed On 12-27-23 15:00:09 MANAGER STUDENT [employer] by Law Beltrán
--- NOTE | 2023-12-27 16:04 | P.CNS ---
Date of Consult: 12/27/23 Reason for Consult: Hyponatremia Requesting Physician: Benito Johnson Chief Complaint: Shortness of breath, CHF exacerbation. History of Present Illness: 63-year-old female patient with medical history significant for hypertension, COPD, hyperlipidemia, who was evaluated for episode of worsening shortness of breath and leg swelling. She reported that she was having shortness of breath and leg swelling for couple of weeks. No chest pain reported. No fever no, no chills reported. She has a cough but is nonproductive of sputum. In the ED chest x-ray done showed no overt acute intrathoracic abnormality except for cardiomegaly. She had does have no abnormal electrolytes labs and because of concerns for CHF exacerbation she was admitted for IV diuresis and cardiology evaluation. 16:13 This 63 yrs old Female presents to ER via Unassigned with complaints of Breathing snw Difficulty, Pain. 16:13 The patient has shortness of breath at rest. Onset: The symptoms/episode began/occurred snw acutely. Duration: The symptoms are continuous. The patient's shortness of breath is aggravated by exertion. The patient has experienced similar episodes in the past. The patient has been recently seen by a physician: the patient's primary care provider, Dr. Ventura. on O2 at 3L via N/C consistently. Allergies No Known Allergies Allergy (Verified 11/11/17 22:26) Home medications list reviewed: Yes Home Medications: Albuterol Sulfate [Proair Hfa] 1 puff IH PRN PRN 12/26/23 Aspirin [Aspirin EC] 81 mg PO DAILY 12/26/23 Atorvastatin Calcium [Lipitor*] 20 mg PO DAILY 12/26/23 Duloxetine [Cymbalta *] 30 mg PO DAILY 12/26/23 Eszopiclone 3 mg PO BEDTIME 12/26/23 Fluticasone Propionate 2 spray IN BID 12/26/23 Folic Acid 1 mg PO DAILY 12/26/23 Levocetirizine Dihydrochloride [24Hr Allergy Relief] 5 mg PO DAILY 12/26/23 Linaclotide [Linzess] 290 mg PO DAILY 12/26/23 Melatonin [Melatonin*] 3 mg PO BEDTIME 12/26/23 Metoprolol Succinate 50 mg PO DAILY 12/26/23 Sacubitril/Valsartan [Entresto 49 mg-51 mg Tablet] 1 tab PO BID 12/26/23 Umeclidinium Brm/Vilanterol Tr [Anoro Ellipta 62.5-25 Mcg INH] 2.5 mcg IH DAILY 12/26/23 Upadacitinib [Rinvoq] 15 mg PO DAILY 12/26/23 predniSONE [Prednisone*] 5 mg PO DAILY PRN 12/26/23 Metoprolol Succinate [Toprol Xl] 25 mg PO BEDTIME #30 tab 12/28/23 Sodium Chloride Tab [Sodium Chloride*] 1 gm PO BIDWM #60 tab 12/28/23 Urea [Ure-Na] 30 gm PO DAILY #30 packet 12/28/23 predniSONE [Deltasone] 20 mg PO BID #20 tab 12/28/23 - Past Medical/Surgical History Diabetic: No -: COPD -: Rheumatoid Arthritis -: Depression -: Allergies -: Pericarditis -: Asthma -: Gallbladder -: Pericardial window Psychosocial/ Personal History: Patient currently lives at home with her family and is retired. - Family History Father Medical History: Cancer, Other (see notes) Notes: Blood clot, Mother Medical History: Other (see notes) Notes: Cataracts - Social History Smoking Status: Current every day smoker Alcohol use: No CD- Drugs: No Caffeine use: Yes Place of Residence: Home Review of Systems 10-point ROS is otherwise unremarkable General: Weakness, Malaise Respiratory: SOB with Excertion Cardiovascular: Edema Physical Examination Temp Pulse Resp BP Pulse Ox 97.1 F 111 H 20 123/58 L 91 12/27/23 12:00 12/27/23 13:08 12/27/23 12:00 12/27/23 13:08 12/27/23 12:00 General: In no apparent distress, Oriented x3, Cooperative HEENT: Atraumatic Neck: Supple Respiratory: Diminished Cardiovascular: Edema Gastrointestinal: Soft and benign, Non-distended Musculoskeletal: No contractures Integumentary: No rashes, No cyanosis Neurological: Normal speech Blood work reviewed in the chart. Imagings Data: EXAM DESCRIPTION: RAD - Chest Single View - 12/25/2023 5:00 pm CLINICAL HISTORY: DYSPNEA Chest pain. COMPARISON: Chest Pa And Lat (2 Views) dated 12/17/2023; Chest Single View dated 08/22/2020; Chest Pa And Lat (2 Views) dated 07/23/2020; Chest Pa And Lat (2 Views) dated 08/21/2019 FINDINGS: Portable technique limits examination quality. The lungs are grossly clear. The heart is moderately enlarged in size. No displaced fractures.Trace left pleural effusion. IMPRESSION: No acute intrathoracic process suspected. LEFT VENTRICULAR WALL MOTION: ANTEROAPICAL HYPOKINESIS. DOPPLER/COLOR FLOW: NORMAL COMMENTS: NORMAL LEFT VENTRICULAR EJECTION FRACTION. ANTEROAPICAL HYPOKINESIS, CONSISTENT WITH CORONARY ARTERY DISEASE. NO EFFUSION. AORTIC SCLEROSIS. Conclusions/Impression: Hypervolemic Hyponatremia -Continue Lasix -CT Chest to evaluate for lung lesion Hypokalemia -Replete as ordered Metabolic Alkalosis in the setting of COPD -Replete potassium prn Hypomagnesemia -Replete as ordered HTN -Hold antihypertensives at this time Diastolic CHF, A/C -Continue Lasix -Consider echocardiogram Anemia -Monitor H&H Cigarette Smoker COPD -Recommend tobacco cessation -CT Chest Hospitalist and ER notes reviewed Thank you kindly for the consultation
[2023-12-28 06:13] LABS: Absolute Lymphocytes (CBC) 0.3 K/uL (0.7-4.9); Lymphocytes % 2.5 % (15.3-44.8); MCV 95.6 fL (80-100); MPV 6.6 fL (7.6-11.3); Platelets 249 thou/uL (152-406); RBC Red Blood Cell Count 2.93 M/uL (3.86-4.86)
[2023-12-28 06:34] LABS: Albumin 2.8 g/dL (3.4-5.0); Bilirubin Total 0.8 mg/dL (0.2-1.0); Phosphorus 3.9 mg/dL (2.5-4.9); Potassium 3.9 mEq/L (3.5-5.1); Protein, Total 6.8 g/dL (6.4-8.2); Uric Acid 4.5 mg/dL (2.6-6.0)
--- NOTE | 2023-12-28 07:18 | ECHO ---
HEIGHT: 5 ft 4 in WEIGHT: 210 lb 0 oz DATE OF STUDY: 12/27/[address]: Lambert Ball MD 2-DIMENSIONAL: YES M.MODE: DOPPLER: COLOR FLOW: YES TDS: YES PORTABLE: DEFINITY: BUBBLE STUDY: DIAGNOSIS: EVALUATION OF CONGESTIVE HEART FAILURE CARDIAC HISTORY: CATHERIZATION: YES SURGERY: NO PROSTHETIC VALVE: NO PACEMAKER: NO MEASUREMENTS (cm) DIASTOLIC (NORMALS) SYSTOLIC (NORMALS) IVSd (0.6-1.2) LA Diam (1.9-4.0) LVEF LVIDd (3.5-5.7) LVIDs (2.0-3.5) %FS LVPWd (0.6-1.2) Ao Diam (2.0-3.7) 2 DIMENSIONAL ASSESSMENT: RIGHT ATRIUM: LEFT ATRIUM: RIGHT VENTRICLE: LEFT VENTRICLE: TRICUSPID VALVE: MITRAL VALVE: PULMONIC VALVE: AORTIC VALVE: PERICARDIAL EFFUSION: AORTIC ROOT: LEFT VENTRICULAR WALL MOTION: DOPPLER/COLOR FLOW: COMMENTS: 1. ONLY TWO IMAGES WERE OBTAINED AND VERY LIMITED WINDOWS TECHNOLOGIST: CHAPINCITO SILVA
[2023-12-28 08:16] LABS: Specific Gravity 1.012 (1.005-1.030); Urine Bacteria None Seen /HPF (<20); Urine Bilirubin NEGATIVE (Negative); Urine Blood 1+ (Negative); Urine Clarity Extremely Turbid (Clear); Urine Color Yellow (Yellow); Urine Glucose NEGATIVE (Negative); Urine Mucus 1+ /HPF (None Seen); Urine Protein TRACE (Negative); Urine Urobilinogen 1+ (Normal); Urine pH 5.5 (5.0-7.0)
[2023-12-28] MEDS: POTASSIUM CL SA 10 MEQ TAB PO ONE (08:42)
[2023-12-28] MEDS: UREA 15 GM POWDER PACKET PO SCH (09:16)
[2023-12-28 10:31] VITALS: TEMP 97.7
[2023-12-28] MEDS: SACUBITRIL/VALSARTAN 49/51 MG TAB PO SCH (11:17)
[2023-12-28] MEDS: METOPROLOL XL 50 MG TAB PO SCH (11:18)
[2023-12-28] MEDS: DULOXETINE 30 MG CAP PO SCH (11:18)
[2023-12-28] MEDS: ASPIRIN EC 81 MG TAB PO SCH (11:20)
[2023-12-28] MEDS: FLUTICASONE 50MCG NASAL SPRAY NAS SCH (11:20)
--- NOTE | 2023-12-28 13:35 | RAD REPORT ---
EXAM DESCRIPTION: CT - Thorax Wo Con - 12/28/2023 8:04 am CLINICAL HISTORY: Hyponatremia. COPD. Dyspnea COMPARISON: Thorax Wo Con dated 11/12/2017; CTANGIO CHEST FOR PE dated 05/10/2012 TECHNIQUE: Axial thin cut images of the chest were obtained without IV contrast. Multiplanar reforma ts were generated and reviewed. All CT scans are performed using dose optimization technique as appropriate and may include automated exposure control or mA/KV adjustment according to patient size. FINDINGS: Breathing motion artifact somewhat limits evaluation. No mass or infiltrate in the lung parenchyma. Mild upper lobe predominant interstitial thickening, st able. No pleural thickening or pleural effusion. No pneumothorax. Known anterior midline diaphragmatic hernia containing a portion of the left liver lobe, and now also contained a segment of the distal stomach, overall appears stable in size. Some mass effect upon the right heart border, stable. No abnormal mediastinal or hilar masses or lymphadenopathy seen. No sign ificant aortic or pulmonary artery findings. Assessment is limited in the absence of IV contrast. No chest wall mass or abnormal axillary lymphadenopathy. Evaluation of the solid abdominal structures reveals no suspicious findings. IMPRESSION: No acute process within the chest. Stable interstitial changes favoring COPD, and stable large anterior diaphragmatic hernia as above.
[2023-12-28] MEDS: IPRATROPIUM BROM 0.5MG/2.5ML NEB PRN (13:44)
[2023-12-28 14:08] VITALS: BP 138/64
--- NOTE | 2023-12-28 16:34 | P.DS ---
Admission Date: 12/25/23 Discharge Date: 12/28/23 Disposition: DC HOME/HOME HEALTH CARE Discharge Condition: GOOD Reason for Admission: Shortness of breath, CHF exacerbation. Brief History of Present Illness: 63-year-old female patient with medical history significant for hypertension, COPD, hyperlipidemia, who was evaluated for episode of worsening shortness of breath and leg swelling. She reported that she was having shortness of breath and leg swelling for couple of weeks. No chest pain reported. No fever no, no chills reported. She has a cough but is nonproductive of sputum. In the ED chest x-ray done showed no overt acute intrathoracic abnormality except for cardiomegaly. She had does have no abnormal electrolytes labs and because of concerns for CHF exacerbation she was admitted for IV diuresis and cardiology ev aluation. - Physical Exam General: Alert, In no apparent distress, Oriented x3 HEENT: Atraumatic, Normocephalic, PERRLA Neck: Supple, 2+ carotid pulse no bruit Respiratory: Clear to auscultation bilaterally, Normal air movement Cardiovascular: Normal pulses, Regular rate/rhythm, Normal S1 S2 Capillary refill: <2 Seconds Gastrointestinal: Normal bowel sounds, Soft and benign, Non-distended Musculoskeletal: No clubbing, No swelling Integumentary: No rashes, No breakdown Neurological: Normal gait, Normal speech, Normal strength at 5/5 x4 extr Lymphatics: No axilla or inguinal lymphadenopathy Hospital Course: 63year-old female patient with a past medical history of COPD presented with shortness of breath, lower extremity swelling. Was noted to have acute on chronic heart failure. Was treated with IV diuretics, oxygen, Condition improved with Lasix, oxygen. She reports home O2. Stable for discharge to home with follow-up appointment with primary care physician, follow-up with cardiology in 1 to 2 weeks. PROBLEM: Acute on chronic heart failure History of COPD O2 dependent Discharge home follow-up with cardiology in 1 to 2 weeks. Resume home O2, follow-up with pulmonary in 1 to 2 weeks for history of COPD Continue home medicines as previously prescribed GOAL: Clear understanding of disease process INSTRUCTIONS: Physician Discharge Instructions: -DC IV and DC home -Follow-up with PCP in 1 to 2 weeks -Please call Dr. Ford at [phone] if any questions regarding hospital stay -Please call nursing station at [phone] if any nursing or medication questions -Return to the emergency room if symptoms worsen Diet: ADA, low sodium Activity: Fall precautions DME: Date Ordered: Name of Company: [employer] Services Needed: None Date or Referral: IMMUNIZATION Influenza Vaccine Indicated: Influenza Vaccine Given: Date Given: Pneumonia Vaccine Indicated: Pneumonia Vaccine Given: Date Given: Vital Signs/Physical Exam: Temp Pulse Resp BP Pulse Ox 97.7 F 106 H 18 138/64 92 12/28/23 12:00 12/28/23 13:50 12/28/23 12:00 12/28/23 13:50 12/28/23 12:00 Laboratory Data at Discharge: WBC 11.40 thou/uL (4.3-10.9) H 12/28/23 05:52 Hgb 9.2 g/dL (12.0-15.0) L 12/28/23 05:52 Hct 28.0 % (36.0-45.0) L 12/28/23 05:52 Plt Count 249 thou/uL (152-406) 12/28/23 05:52 PT 13.6 SECONDS (9.5-12.5) H 12/25/23 16:29 INR 1.24 12/25/23 16:29 Sodium 128 mEq/L (136-145) L 12/28/23 05:52 Potassium 3.9 mEq/L (3.5-5.1) 12/28/23 05:52 BUN 18 mg/dL (7-18) 12/28/23 05:52 Creatinine 0.85 mg/dL (0.55-1.02) 12/28/23 05:52 Glucose 110 mg/dL (74-106) H 12/28/23 05:52 Uric Acid 4.5 mg/dL (2.6-6.0) 12/28/23 05:52 Phosphorus 3.9 mg/dL (2.5-4.9) 12/28/23 05:52 Magnesium 2.0 mg/dL (1.6-2.4) 12/28/23 05:52 Total Bilirubin 0.8 mg/dL (0.2-1.0) 12/28/23 05:52 AST 18 U/L (15-37) 12/28/23 05:52 ALT 16 U/L (13-56) 12/28/23 05:52 Alkaline Phosphatase 108 U/L (45-117) 12/28/23 05:52 Triglycerides 45 mg/dL (<150) 12/26/23 05:04 Cholesterol 89 mg/dL (<200) 12/26/23 05:04 HDL Cholesterol 60 mg/dL (40-60) 12/26/23 05:04 Cholesterol/HDL Ratio 1.48 12/26/23 05:04 Home Medications: Albuterol Sulfate [Proair Hfa] 1 puff IH PRN PRN 12/26/23 Aspirin [Aspirin EC] 81 mg PO DAILY 12/26/23 Atorvastatin Calcium [Lipitor*] 20 mg PO DAILY 12/26/23 Duloxetine [Cymbalta *] 30 mg PO DAILY 12/26/23 Eszopiclone 3 mg PO BEDTIME 12/26/23 Fluticasone Propionate 2 spray IN BID 12/26/23 Folic Acid 1 mg PO DAILY 12/26/23 Levocetirizine Dihydrochloride [24Hr Allergy Relief] 5 mg PO DAILY 12/26/23 Linaclotide [Linzess] 290 mg PO DAILY 12/26/23 Melatonin [Melatonin*] 3 mg PO BEDTIME 12/26/23 Metoprolol Succinate 50 mg PO DAILY 12/26/23 Sacubitril/Valsartan [Entresto 49 mg-51 mg Tablet] 1 tab PO BID 12/26/23 Umeclidinium Brm/Vilanterol Tr [Anoro Ellipta 62.5-25 Mcg INH] 2.5 mcg IH DAILY 12/26/23 Upadacitinib [Rinvoq] 15 mg PO DAILY 12/26/23 predniSONE [Prednisone*] 5 mg PO DAILY PRN 12/26/23 Metoprolol Succinate [Toprol Xl] 25 mg PO BEDTIME #30 tab 12/28/23 Sodium Chloride Tab [Sodium Chloride*] 1 gm PO BIDWM #60 tab 12/28/23 Urea [Ure-Na] 30 gm PO DAILY #30 packet 12/28/23 predniSONE [Deltasone] 20 mg PO BID #20 tab 12/28/23 New Medications: predniSONE [Deltasone] 20 mg PO BID #20 tab Sodium Chloride Tab [Sodium Chloride*] 1 gm PO BIDWM #60 tab Metoprolol Succinate [Toprol Xl] 25 mg PO BEDTIME #30 tab Urea [Ure-Na] 30 gm PO DAILY #30 packet Physician Discharge Instructions: -DC IV and DC home -Follow-up with PCP in 1 to 2 weeks -Follow-up with Cardiology & Pulmonary in 1 to 2 weeks -Please call Dr. Ford at [phone] if any questions regarding hospital stay -Please call nursing station at [phone] if any nursing or medication questions -Return to the emergency room if symptoms worsen Diet: Low sodium Activity: Fall precautions Followup: Delfino Baldwin MD [ACTIVE - CAN ADMIT] - 1-2 Weeks Law Beltrán MD [ACTIVE - CAN ADMIT] - 1-2 Weeks Manuel Ventura MD [Primary Care Provider] - 1-2 Weeks Time spent managing pt's care (in minutes): 55
[2023-12-28 18:54] VITALS: O2SAT 92
[2023-12-28] MEDS ORDERED: ATORVASTATIN 20 MG TAB PO SCH (21:00)
[2023-12-28] MEDS ORDERED: MELATONIN 3 MG TABLET PO SCH (21:00)
[2023-12-28] MEDS ORDERED: ESZOPICLONE 1 MG TAB PO SCH (21:00)
--- NOTE | 2023-12-29 08:42 | P.PN ---
Date of Service: 12/28/23 Vital Signs Temp Pulse Resp BP Pulse Ox 97.7 F 106 H 18 138/64 92 12/28/23 12:00 12/28/23 13:50 12/28/23 12:00 12/28/23 13:50 12/28/23 12:00 Microbiology Results 12/25/23 18:06 Blood - Blood Aerobic Blood Culture - Preliminary No growth in 24 hours. 12/25/23 18:06 Blood - Blood Anaerobic Blood Culture - Preliminary No growth in 24 hours. 12/25/23 18:17 Blood - Blood Aerobic Blood Culture - Preliminary No growth in 24 hours. 12/25/23 18:17 Blood - Blood Anaerobic Blood Culture - Preliminary No growth in 24 hours. Assessment/ Plan: Nephrology Feeling better Improving dyspnea No chest pain +UO No acute events overnight Vitals, medications, blood work and imaging reviewed in the chart General: In no apparent distress, Oriented x3, Cooperative HEENT: Atraumatic Neck: Supple Respiratory: Diminished Cardiovascular: Edema Gastrointestinal: Soft and benign, Non-distended Musculoskeletal: No contractures Integumentary: No rashes, No cyanosis Neurological: Normal speech Blood work reviewed in the chart. Imagings Data: EXAM DESCRIPTION: RAD - Chest Single View - 12/25/2023 5:00 pm CLINICAL HISTORY: DYSPNEA Chest pain. COMPARISON: Chest Pa And Lat (2 Views) dated 12/17/2023; Chest Single View dated 08/22/2020; Chest Pa And Lat (2 Views) dated 07/23/2020; Chest Pa And Lat (2 Views) dated 08/21/2019 FINDINGS: Portable technique limits examination quality. The lungs are grossly clear. The heart is moderately enlarged in size. No displaced fractures.Trace left pleural effusion. IMPRESSION: No acute intrathoracic process suspected. LEFT VENTRICULAR WALL MOTION: ANTEROAPICAL HYPOKINESIS. DOPPLER/COLOR FLOW: NORMAL COMMENTS: NORMAL LEFT VENTRICULAR EJECTION FRACTION. ANTEROAPICAL HYPOKINESIS, CONSISTENT WITH CORONARY ARTERY DISEASE. NO EFFUSION. AORTIC SCLEROSIS. Conclusions/Impression: Hypervolemic Hyponatremia -Continue Lasix -Start daily urea -CT Chest to evaluate for lung lesion, reviewed Hypokalemia -Replete as ordered Metabolic Alkalosis in the setting of COPD -Replete potassium prn Hypomagnesemia -Replete as ordered HTN -Hold antihypertensives at this time Diastolic CHF, A/C -Continue Lasix -Echocardiogram poor quality Anemia in chronic illness -Monitor H&H Cigarette Smoker COPD -Recommend tobacco cessation -CT Chest reviewed Hospitalist and ER notes reviewed EXAM DESCRIPTION: CT - Thorax Wo Con - 12/28/2023 8:04 am CLINICAL HISTORY: Hyponatremia. COPD. Dyspnea COMPARISON: Thorax Wo Con dated 11/12/2017; CTANGIO CHEST FOR PE dated 05/10/2012 TECHNIQUE: Axial thin cut images of the chest were obtained without IV contrast. Multiplanar reformats were generated and reviewed. All CT scans are performed using dose optimization technique as appropriate and may include automated exposure control or mA/KV adjustment according to patient size. FINDINGS: Breathing motion artifact somewhat limits evaluation. No mass or infiltrate in the lung parenchyma. Mild upper lobe predominant interstitial thickening, stable. No pleural thickening or pleural effusion. No pneumothorax. Known anterior midline diaphragmatic hernia containing a portion of the left liver lobe, and now also contained a segment of the distal stomach, overall appears stable in size. Some mass effect upon the right heart border, stable. No abnormal mediastinal or hilar masses or lymphadenopathy seen. No significant aortic or pulmonary artery findings. Assessment is limited in the absence of IV contrast. No chest wall mass or abnormal axillary lymphadenopathy. Evaluation of the solid abdominal structures reveals no suspicious findings. IMPRESSION: No acute process within the chest. Stable interstitial changes favoring COPD, and stable large anterior diaphragmatic hernia as above.
[2023-12-29] MEDS ORDERED: CETIRIZINE HCL 5 MG TABLET PO SCH (09:00)
[2023-12-29] MEDS ORDERED: UPADACITINIB 15 MG PO SCH (09:00)
[2023-12-29] MEDS ORDERED: HOME MED 1 EA UNK (Linaclotide [Linzess] 290 MCG Capsule) PO SCH (09:00)
[2023-12-29] MEDS ORDERED: HOME MED 1 EA UNK (Umeclidinium Brm/Vilanterol Tr [Anoro Ellipta 62.5-25 Mcg Inh] Blst.W.D IH SCH ×2 (09:00)
== END 2023-12-28 18:04 | disposition home health service (06) | DRG 291 ==
LOC: ER 15:54 → ERHOLD 20:02 → 4TH 20:19
PROVIDERS: ADMIT Internal Medicine Nephrology; ATTEND Hospitalist
DX: I11.0 Hypertensive heart disease with heart failure (principal); I50.33 Acute on chronic diastolic (congestive) heart failure; E87.1 Hypo-osmolality and hyponatremia; E87.3 Alkalosis; J44.1 Chronic obstructive pulmonary disease with (acute) exacerbation; E83.42 Hypomagnesemia; E87.6 Hypokalemia; M06.9 Rheumatoid arthritis, unspecified; D64.9 Anemia, unspecified; E87.70 Fluid overload, unspecified; E78.5 Hyperlipidemia, unspecified; F17.210 Nicotine dependence, cigarettes, uncomplicated; Z79.82 Long term (current) use of aspirin; Z99.81 Dependence on supplemental oxygen; Z79.52 Long term (current) use of systemic steroids; Z79.899 Other long term (current) drug therapy
CPT/HCPCS: 36415; 36600; 71045; 71250; 80048; 80053; 80061; 80076; 81001; 82805; 83735; 83880; 83930; 83935; 84100; 84132; 84443; 84484; 84550; 85025; 85610; 87040; 93005; 93307; J0696; J1170; J1650; J1940; J2405; J3475; J7644

== ENCOUNTER 2024-04-18 10:13 | Emergency (ER) | payer OTHER ==
[2024-04-18] MEDS ORDERED: KETOROLAC 30 MG/ML INJ ONE (10:58)
--- NOTE | 2024-04-18 11:39 | RAD REPORT ---
EXAM DESCRIPTION: CT - Thoracic Spine W/o Cont - 04/18/2024 10:45 am CLINICAL HISTORY: fall, back pain COMPARISON: Thorax Wo Con dated 12/28/2023 TECHNIQUE: Axial noncontrast CT imaging of the thoracic spine was performed with coronal and sagitta l re-formatted images. All CT scans are performed using dose optimization technique as appropriate and may include automated exposure control or mA/KV adjustment according to patient size. FINDINGS: Severe wedge compression deformities at T5 and T6. Retropulsion of the posterior vertebral cortices, for up to 6 mm, mildly effacing the spinal canal. Signs of incomplete healing along the ve rtebral bodies. . No aggressive marrow pattern or malalignment. Mild paraspinous soft tissue prominence at T5 and T6 levels. No paraspinal abscess or hyperattenuatin g hematoma seen. Intervertebral disc disease assessment is inherently limited by CT. Within these limitations, no high -grade canal stenosis suspected. Hont-[id number] degrees of bony neural foraminal narrowing particu larly at T6-7. IMPRESSION: Superior wedge compression deformities at T5 and T6, with suggestion of signs of incompl ete healing, suggesting at least subacute or chronic age, although ultimately their age is indetermin ate. Mildly retropulsion of the posterior vertebral cortices at those levels up to 6 mm. Consider MRI follow-up for assessment of disc disease if clinically desired.
--- NOTE | 2024-04-18 11:56 | EDPHYS ---
Physician Documentation [facility] Name: García Alegria Age: 64 yrs Sex: Female : 1960 Arrival Date: 04/18/2024 Time: 10:13 Bed 19 Private MD: ED Physician Rishabh Love HPI: 04/18 12:14 This 64 yrs old Female presents to ER via Wheelchair with complaints of Back Pain. ms3 12:14 64-year-old female with past medical history of asthma, depression, dyspnea, ms3 pericarditis, rheumatoid arthritis presents to the emergency department for back pain. Patient states she fell 2 days ago and had pain since that time. Patient states her discomfort is an 8/10. Patient denies any alleviating or inciting factors. Historical: - Allergies: : No Known Allergies; ap3 - PMHx: 10:23 Asthma; Depression; dyspnea; Immune Suppression; pericarditis; Rheumatoid Arthritis; ap3 Tachycardia; Tachypnea; unknown memory loss disease; - Immunization history:: Client reports receiving the 2nd dose of the Covid vaccine. - Infectious Disease History:: Denies. - Social history:: Smoking status: Patient/guardian denies using tobacco. ROS: 12:14 Constitutional: Negative for fever, and chills. Neck: Negative for injury, pain, and ms3 swelling, Cardiovascular: Negative for chest pain, and palpitations. Respiratory: Negative for shortness of breath, cough, wheezing, and pleuritic chest pain, Abdomen/GI: Negative for abdominal pain, nausea, vomiting, diarrhea, and constipation, Back: Negative for injury and pain, MS/Extremity: Negative for injury and deformity, Skin: Negative for injury, rash, and discoloration, Exam: 12:14 Constitutional: This is a well developed, well nourished patient who is awake, alert, ms3 and in no acute distress. Head/Face: Normocephalic, atraumatic. Neck: Trachea midline, no cervical lymphadenopathy. Supple, full range of motion without nuchal rigidity, or vertebral point tenderness. No Meningismus. Chest/axilla: Normal chest wall appearance and motion. Nontender with no deformity. Cardiovascular: Regular rate and rhythm with a normal S1 and S2. No gallops, murmurs, or rubs. Normal PMI, no JVD. No pulse deficits. Respiratory: Lungs have equal breath sounds bilaterally, clear to auscultation and percussion. No rales, rhonchi or wheezes noted. No increased work of breathing, no retractions or nasal flaring. Abdomen/GI: Soft, non-tender, with normal bowel sounds. No distension or tympany. No guarding or rebound. No evidence of tenderness throughout. 12:14 Back: pain, that is moderate, of the thoracic area and back, Vital Signs: 10:22 BP 106 / 74; Pulse 100; Resp 19; Temp 97.8; Pulse Ox 97% on 3 lpm NC; Weight 81.65 kg; ap3 Height 5 ft. 4 in. ; Pain 5/10; 12:19 BP 110 / 72; Pulse 87; Resp 18; Temp 97.8; Pulse Ox 97% on 3 lpm NC; ph 10:22 Body Mass Index 30.90 (81.65 kg, 162.56 cm) ap3 10:22 Pain Scale: Adult ap3 10:22 patient wears home oxygen ap3 MDM: 10:29 Patient medically screened. ms3 12:14 Differential diagnosis: Osteoporosis ruptured disc, vertebral fracture. Data reviewed: ms3 vital signs, nurses notes, radiologic studies, CT scan. I considered the following discharge prescriptions or medication management in the emergency department Medications were administered in the Emergency Department. See MAR. Historians other than the Patient: Family Member: Patient's son. Counseling: I had a detailed discussion with the patient and/or guardian regarding the historical points, exam findings, and any diagnostic results supporting the discharge/admit diagnosis, radiology results, the need for outpatient follow up, to return to the emergency department if symptoms worsen or persist or if there are any questions or concerns that arise at home. Special discussion: I discussed with the patient/guardian in detail that at this point there is no indication for admission to the hospital. It is understood, however, that if the symptoms persist or worsen the patient needs to return immediately for re-evaluation. ED course: Discussed CT findings with patient and her son. Patient to follow-up with her primary care physician in 2 to 3 days. Discussed to follow-up with Dr. Cobb with patient if pain continues. Patient understands and agrees with plan. All questions were answered. Return precautions discussed include worsening symptoms, or any other concerns. 04/18 10:29 Order name: Thoracic Spine WO Cont CT; Complete Time: 11:47 ms3 Administered Medications: 11:30 Drug: Ketorolac IVP 15 mg IVP once {Note: administered IM to L deltoid.} Route: IVP; ph Site: Other; 12:20 Follow up: Response: No adverse reaction ph Disposition Summary: 04/18/24 11:55 Discharge Ordered Notes: Location: Home ms3 Condition: Stable ms3 Diagnosis - Thoracic back pain ms3 - T5-T6 compression fracture ms3 Followup: ms3 - With: Trung Keene DO - When: 2 - 3 days - Reason: Recheck today's complaints Forms: - Medication Reconciliation Form ms3 - Antibiotic Education ms3 - Prescription Opioid Use ms3 - Patient Portal Instructions ms3 - Leadership Thank You Letter ms3 Signatures: Dispatcher [employer] Ruba Simon RN RN Twyla Duarte RN RN [id number] Rishabh Love DO DO ms3
--- NOTE | 2024-04-18 11:56 | ER ---
Nurse's Notes [facility] Name: García Alegria Age: 64 yrs Sex: Female : 1960 Arrival Date: 04/18/2024 Time: 10:13 Bed 19 Private MD: Diagnosis: Thoracic back pain;T5-T6 compression fracture Presentation: 04/18 10:21 Chief complaint: Patient states: she fell a few days ago and is having back pain. ap3 patient currently rates her pain as a 5/10 on the pain scale. 10:22 Coronavirus screen: At this time, the client does not indicate any symptoms associated ap3 with coronavirus-19. Ebola Screen: No symptoms or risks identified at this time. Initial Sepsis Screen: Does the patient meet any 2 criteria? HR > 90 bpm. Does the patient have a suspected source of infection? No. Patient's initial sepsis screen is negative. Risk Assessment: Do you want to hurt yourself or someone else? Patient reports no desire to harm self or others. Onset of symptoms is unknown. 10:22 Method Of Arrival: Wheelchair ap3 10:28 Acuity: KATYA 3 ap3 Triage Assessment: 10:25 General: Appears in no apparent distress. Behavior is calm, cooperative. Neuro: Level ap3 of Consciousness is awake, alert, obeys commands, Oriented to person, place, time. Cardiovascular: Patient's skin is warm and dry. Respiratory: Airway is patent Respiratory effort is even, unlabored, Respiratory pattern is regular, symmetrical, patient on 3 liters home oxygen. 10:27 Pain: Complains of pain in back. ap3 Historical: - Allergies: 10:23 No Known Allergies; ap3 - PMHx: 10:23 Asthma; Depression; dyspnea; Immune Suppression; pericarditis; Rheumatoid Arthritis; ap3 Tachycardia; Tachypnea; unknown memory loss disease; - Immunization history:: Client reports receiving the 2nd dose of the Covid vaccine. - Infectious Disease History:: Denies. - Social history:: Smoking status: Patient/guardian denies using tobacco. Screenin:26 Abuse screen: Denies threats or abuse. Nutritional screening: No deficits noted. ap3 Tuberculosis screening: No symptoms or risk factors identified. 11:42 [facility] ED Fall Risk Assessment (Adult) History of falling in the last 3 months, ph including since admission Yes- single mechanical fall (1 pt) Confusion or Disorientation No (0 pts) Intoxicated or Sedated Impaired Gait No (0 pts) Mobility Assist Device Used Yes (1 pt) Altered Elimination No (0 pt) Score/Fall Risk Level 0 - 2 = Low Risk Oriented to surroundings, Maintained a safe environment, Hourly rounding (assess needs \T\ fall precautionary measures) done. Assessment: 11:45 General: Appears in no apparent distress. Behavior is calm, cooperative. Pain: ph Complains of pain in low back area. Neuro: Level of Consciousness is awake, alert, obeys commands, Oriented to person, place, time, situation. Cardiovascular: Capillary refill < 3 seconds in bilateral fingers Patient's skin is warm and dry. Derm: Skin is pink, warm \T\ dry. 12:19 Reassessment: Patient appears in no apparent distress at this time. Patient and/or ph family updated on plan of care and expected duration. Pain level reassessed. Patient is alert, oriented x 3, equal unlabored respirations, skin warm/dry/pink. Vital Signs: 10:22 BP 106 / 74; Pulse 100; Resp 19; Temp 97.8; Pulse Ox 97% on 3 lpm NC; Weight 81.65 kg; ap3 Height 5 ft. 4 in. ; Pain 5/10; 12:19 BP 110 / 72; Pulse 87; Resp 18; Temp 97.8; Pulse Ox 97% on 3 lpm NC; ph 10:22 Body Mass Index 30.90 (81.65 kg, 162.56 cm) ap3 10:22 Pain Scale: Adult ap3 10:22 patient wears home oxygen ap3 ED Course: 10:17 Patient arrived in ED. im 10:21 Rishabh Love DO is Attending Physician. ms3 10:23 Triage completed. ap3 10:25 Arm band placed on left wrist. ap3 10:33 Ruba Jara, RN is Primary Nurse. ph 10:44 Thoracic Spine WO Cont CT In Process Unspecified. EDMS 11:44 Patient has correct armband on for positive identification. Bed in low position. Call ph light in reach. 11:45 No provider procedures requiring assistance completed. Patient did not have IV access ph during this emergency room visit. 11:54 Trung Keene DO is Referral Physician. ms3 Administered Medications: 11:30 Drug: Ketorolac IVP 15 mg IVP once {Note: administered IM to L deltoid.} Route: IVP; ph Site: Other; 12:20 Follow up: Response: No adverse reaction ph Medication: 11:44 VIS not applicable for this client. ph Outcome: 11:55 Discharge ordered by ms3 12:20 Discharged to home via wheelchair, with family, ph 12:20 Condition: good 12:20 Discharge instructions given to patient, family, Instructed on discharge instructions, follow up and referral plans. Demonstrated understanding of instructions, follow-up care, 12:21 Patient left the ED. ph Signatures: Dispatcher [employer] EDMS Ruba Jara RN RN ph Twyla Bonilla RN RN ap3 Rishabh Love DO DO ms3 Allison Freedman Corrections: (The following items were deleted from the chart) 10:27 10:21 Chief complaint: Patient states: she fell a few days ago and is having low back ap3 pain. patient currently rates her pain as a 5/10 on the pain scale ap3 10:27 10:25 Pain: Complains of pain in low back area Pain currently is 5 out of 10 on a pain ap3 scale. Pain began 2-3 days ago. ap3 10:27 10:25 Musculoskeletal: Reports pain in low back area ap3 ap3 10:28 10:22 Acuity: KATYA 4 ap3 ap3
[2024-04-18 13:06] VITALS: BP 110/72; TEMP 97.8; O2SAT 97
== END 2024-04-18 12:21 | disposition home or self-care (01) ==
LOC: ER 10:13
DX: S22.059A Unspecified fracture of T5-T6 vertebra, initial encounter for closed fracture (principal)
CPT/HCPCS: 72128; 96374; 99284